=== PATIENT | female | born 1965 | race Caucasian/White ===

== ENCOUNTER 2018-05-09 15:17 | Inpatient (IN) | payer MEDICAID, OTHER, SELFPAY ==
[2018-05-09] MEDS: NS 1,000 ML IV ×2 (17:35→21:47)
[2018-05-09] MEDS: PIPERACILLIN/TAZOBACTAM SOD 3.375 GM in D5W MINI-BAG PLUS 50 ML IV (17:36)
[2018-05-09 17:37] LABS: BASO # 0.1 10^3/uL (0.0-0.2); BASO % 0.3 % (0.0-1.0); EOS % 0.1 % (0.0-3.0); HEMATOCRIT 35.1 % (36.0-47.0); HEMOGLOBIN 12.2 g/dl (12.0-15.5); IMMATURE GRANULOCYTE % 0.7 % (0-3.0); LYMPH # 1.4 10^3/uL (1.5-4.5); LYMPH % 8.1 % (24.0-44.0); MEAN CORPUSCULAR HEMOGLOBIN 34.4 pg (27.0-33.0); MEAN CORPUSCULAR HGB CONC 34.8 g/dl (32.0-36.5); MEAN CORPUSCULAR VOLUME 98.9 fl (80.0-96.0); MONO # 1.5 10^3/uL (0.0-0.8); MONO % 8.6 % (0.0-5.0); NEUTROPHILS # 14.6 10^3/uL (1.8-7.7); NEUTROPHILS % 82.2 % (36.0-66.0); PLATELET COUNT, AUTOMATED 342 10^3/uL (150-450); RED BLOOD COUNT 3.55 10^6/uL (4.00-5.40); RED CELL DISTRIBUTION WIDTH 10.8 % (11.5-14.5); WHITE BLOOD COUNT 17.7 10^3/uL (4.0-10.0)
[2018-05-09] MEDS: MORPHINE 2 MG/ML 1ML SYRINGE (J2270) IV (17:37)
[2018-05-09 17:51] LABS: ALBUMIN 2.4 GM/DL (3.2-5.2); ALBUMIN/GLOBULIN RATIO 0.52 (1.00-1.93); ALKALINE PHOSPHATASE 139 U/L (45-117); ALT/SGPT 23 U/L (12-78); ANION GAP 13 MEQ/L (8-16); AST/SGOT 33 U/L (7-37); BILIRUBIN,DIRECT 0.2 MG/DL (0.0-0.2); BILIRUBIN,TOTAL 0.6 MG/DL (0.2-1.0); BLOOD UREA NITROGEN 6 MG/DL (7-18); CALCIUM LEVEL 8.1 MG/DL (8.5-10.1); CARBON DIOXIDE LEVEL 24 MEQ/L (21-32); CHLORIDE LEVEL 95 MEQ/L (98-107); CREATININE FOR GFR 0.54 MG/DL (0.55-1.30); GLOMERULAR FILTRATION RATE > 60.0 (>51); GLUCOSE, FASTING 95 MG/DL (70-100); LIPASE 131 U/L (73-393); POTASSIUM SERUM 3.6 MEQ/L (3.5-5.1); SODIUM LEVEL 132 MEQ/L (136-145)
[2018-05-09] MEDS ORDERED: ISOVUE-370 76% 100ML VIAL (Q9967) As Ordered (17:53)
[2018-05-09 17:58] LABS: INR 1.04; PROTHROMBIN TIME 13.7 SECONDS (12.1-14.4)
[2018-05-09 17:59] LABS: PARTIAL THROMBOPLASTIN TIME 24.9 SECONDS (25.4-37.6)
[2018-05-09] MEDS ORDERED: LIDOCAINE W/EPINEPHRINE 1% 20ML VIAL As Ordered (19:34)
[2018-05-09] MEDS ORDERED: LIDOCAINE 1% SDV INJ 30 ML VIAL As Ordered (19:34)
[2018-05-09] MEDS ORDERED: MORPHINE 4 MG/ML 1ML VIAL/SYRINGE (J2270) IV (19:45)
[2018-05-09] MEDS ORDERED: ONDANSETRON 4MG/2ML VIAL (J2405) IV ×2 (19:45→21:15)
[2018-05-09] MEDS ORDERED: ONDANSETRON 4MG/2ML VIAL (J2405) As Ordered (20:21)
[2018-05-09] MEDS ORDERED: MIDAZOLAM INJ 2 MG/2 ML VIAL (J2250) As Ordered (20:21)
[2018-05-09] MEDS ORDERED: dexameTHASONE 4 MG/ML 1ML VIAL (J1100) As Ordered (20:21)
[2018-05-09] MEDS ORDERED: fentaNYL 250 MCG/5 ML INJECTION (J3010) As Ordered (20:21)
[2018-05-09] MEDS ORDERED: PHENYLephrine HCL 500 MCG/5 ML (100MCG/ML) SYRINGE (J2370) As Ordered ×2 (20:21→20:28)
[2018-05-09] MEDS ORDERED: LIDOCAINE 2% INJ 100 MG/5 ML SDV (FOR ANES.) As Ordered (20:21)
[2018-05-09] MEDS ORDERED: PROPOFOL 200 MG/20 ML VIAL As Ordered (20:21)
[2018-05-09] MEDS ORDERED: KETOROLAC 60 MG/2 ML VIAL (J1885) As Ordered (20:34)
[2018-05-09] MEDS: BUPIVACAINE LIPOSOME/PF 1.3% 20 ML VIAL (13.3MG/ML)(EXPAREL) As Ordered (20:35)
[2018-05-09] MEDS ORDERED: LR 1,000 ML IV (21:15)
[2018-05-09] MEDS ORDERED: fentaNYL 100 MCG/2 ML INJECTION (J3010) IV (21:15)
[2018-05-09] MEDS ORDERED: PERCOCET 5MG/325MG TAB PO (21:15)
[2018-05-09] MEDS ORDERED: HYDROMORPHONE HCL 0.5 MG/ 0.5 ML SYRINGE (J1170 PER 1) IV (21:15)
[2018-05-09] MEDS: VANCOMYCIN HCL 1,000 MG, VIAL MATE ADAPTER 1 EACH in D5W 250 ML IV (21:47)
[2018-05-10] MEDS: PIPERACILLIN/TAZOBACTAM SOD 3.375 GM in D5W MINI-BAG PLUS 50 ML IV ×4 (00:10→18:02)
[2018-05-10] MEDS: NS 1,000 ML IV ×2 (06:04→21:08)
[2018-05-10 06:12] LABS: BASO % 0.1 % (0.0-1.0); HEMATOCRIT 30.1 % (36.0-47.0); LYMPH # 0.4 10^3/uL (1.5-4.5); LYMPH % 4.4 % (24.0-44.0); MEAN CORPUSCULAR HEMOGLOBIN 34.2 pg (27.0-33.0); MEAN CORPUSCULAR HGB CONC 33.9 g/dl (32.0-36.5); MONO # 0.1 10^3/uL (0.0-0.8); MONO % 1.5 % (0.0-5.0); NEUTROPHILS # 7.8 10^3/uL (1.8-7.7); PLATELET COUNT, AUTOMATED 305 10^3/uL (150-450); RED BLOOD COUNT 2.98 10^6/uL (4.00-5.40); RED CELL DISTRIBUTION WIDTH 10.9 % (11.5-14.5); WHITE BLOOD COUNT 8.4 10^3/uL (4.0-10.0)
[2018-05-10 06:27] LABS: HEMOGLOBIN 10.2 g/dl (12.0-15.5)
[2018-05-10 06:35] LABS: ALBUMIN 1.9 GM/DL (3.2-5.2); ALBUMIN/GLOBULIN RATIO 0.42 (1.00-1.93); ALKALINE PHOSPHATASE 102 U/L (45-117); ALT/SGPT 18 U/L (12-78); ANION GAP 10 MEQ/L (8-16); AST/SGOT 23 U/L (7-37); BILIRUBIN,TOTAL 0.5 MG/DL (0.2-1.0); BLOOD UREA NITROGEN 7 MG/DL (7-18); CALCIUM LEVEL 7.9 MG/DL (8.5-10.1); CARBON DIOXIDE LEVEL 24 MEQ/L (21-32); CHLORIDE LEVEL 103 MEQ/L (98-107); CREATININE FOR GFR 0.47 MG/DL (0.55-1.30); GLOMERULAR FILTRATION RATE > 60.0 (>51); GLUCOSE, FASTING 137 MG/DL (70-100); POTASSIUM SERUM 3.5 MEQ/L (3.5-5.1); SODIUM LEVEL 137 MEQ/L (136-145); TOTAL PROTEIN 6.4 GM/DL (6.4-8.2)
[2018-05-10 08:32] LABS: CHOLESTEROL LEVEL 115 MG/DL (<200); CHOLESTEROL RISK RATIO 3.285 (<5); HDL CHOLESTEROL 35 MG/DL (>40); LDL CHOLESTEROL 70 MG/DL (<100); NON-HDL-C 80 MG/DL; TRIGLYCERIDES LEVEL 51 MG/DL (<150)
[2018-05-10] MEDS: VANCOMYCIN HCL 1,000 MG, VIAL MATE ADAPTER 1 EACH in D5W 250 ML IV ×2 (08:59→21:08)
[2018-05-10] MEDS: ENOXAPARIN 40 MG/0.4 ML SYRINGE (J1650) SC (08:59)
[2018-05-10 11:35] LABS: ESTIMATED AVERAGE GLUCOSE 105 MG/DL (60-110); HEMOGLOBIN A1c 5.3 %
[2018-05-10] MEDS: CALCIUM ACETATE 667 MG GELCAP PO ×2 (11:41→18:02)
[2018-05-10] MEDS: PERCOCET 5MG/325MG TAB PO ×2 (15:11→20:42)
[2018-05-10] MEDS: ACETAMINOPHEN TAB 650MG DOSE (2X325MG) PO (22:28)
[2018-05-11] MEDS: PIPERACILLIN/TAZOBACTAM SOD 3.375 GM in D5W MINI-BAG PLUS 50 ML IV ×2 (00:12→05:59)
[2018-05-11 06:29] LABS: BASO % 0.2 % (0.0-1.0); HEMOGLOBIN 9.6 g/dl (12.0-15.5); IMMATURE GRANULOCYTE % 0.7 % (0-3.0); LYMPH # 1.6 10^3/uL (1.5-4.5); LYMPH % 14.7 % (24.0-44.0); MEAN CORPUSCULAR HEMOGLOBIN 33.7 pg (27.0-33.0); MEAN CORPUSCULAR HGB CONC 33.1 g/dl (32.0-36.5); MEAN CORPUSCULAR VOLUME 101.8 fl (80.0-96.0); MONO # 0.9 10^3/uL (0.0-0.8); MONO % 8.6 % (0.0-5.0); NEUTROPHILS # 8.3 10^3/uL (1.8-7.7); NEUTROPHILS % 75.8 % (36.0-66.0); PLATELET COUNT, AUTOMATED 365 10^3/uL (150-450); RED BLOOD COUNT 2.85 10^6/uL (4.00-5.40); WHITE BLOOD COUNT 10.9 10^3/uL (4.0-10.0)
[2018-05-11 06:38] LABS: ALBUMIN 1.8 GM/DL (3.2-5.2); ALBUMIN/GLOBULIN RATIO 0.44 (1.00-1.93); ALKALINE PHOSPHATASE 88 U/L (45-117); ALT/SGPT 18 U/L (12-78); ANION GAP 8 MEQ/L (8-16); AST/SGOT 19 U/L (7-37); BILIRUBIN,TOTAL 0.4 MG/DL (0.2-1.0); BLOOD UREA NITROGEN 8 MG/DL (7-18); C REACTIVE PROTEIN QUANTITATIV 6.76 MG/DL (0.00-0.30); CALCIUM LEVEL 7.8 MG/DL (8.5-10.1); CARBON DIOXIDE LEVEL 27 MEQ/L (21-32); CHLORIDE LEVEL 106 MEQ/L (98-107); CREATININE FOR GFR 0.69 MG/DL (0.55-1.30); GLOMERULAR FILTRATION RATE > 60.0 (>51); GLUCOSE, FASTING 89 MG/DL (70-100); POTASSIUM SERUM 3.2 MEQ/L (3.5-5.1); SODIUM LEVEL 141 MEQ/L (136-145); TOTAL PROTEIN 5.9 GM/DL (6.4-8.2)
[2018-05-11] MEDS: PERCOCET 5MG/325MG TAB PO (06:43)
[2018-05-11] MEDS: CALCIUM ACETATE 667 MG GELCAP PO ×2 (08:19→12:30)
[2018-05-11] MEDS: POTASSIUM CHLORIDE 10 MEQ SR TABLET PO (08:20)
[2018-05-11] MEDS: ENOXAPARIN 40 MG/0.4 ML SYRINGE (J1650) SC (08:20)
[2018-05-11] MEDS: LevoFLOXacin IV 750 MG in APPROPRIATE DILUENT 1 EA IV (08:20)
[2018-05-11] MEDS: KETOROLAC 30 MG/ML VIAL (J1885) IV ×3 (08:22→21:21)
[2018-05-11] MEDS: NS 1,000 ML IV (09:19)
[2018-05-11] MEDS ORDERED: PERCOCET 5MG/325MG TAB PO (10:15)
[2018-05-11] MEDS: ALPRAZolam 0.5 MG TAB PO (12:10)
[2018-05-11] MEDS ORDERED: LORazepam 2 MG/ML VIAL (J2060) IV (14:15)
[2018-05-11] MEDS: OXAZEPAM 10 MG CAP PO (18:22)
[2018-05-12] MEDS: OXAZEPAM 10 MG CAP PO ×4 (00:56→20:06)
[2018-05-12] MEDS: ACETAMINOPHEN TAB 650MG DOSE (2X325MG) PO (01:00)
[2018-05-12] MEDS: KETOROLAC 30 MG/ML VIAL (J1885) IV ×2 (06:04→20:05)
[2018-05-12 06:06] LABS: BASO % 0.4 % (0.0-1.0); EOS % 0.3 % (0.0-3.0); HEMATOCRIT 33.4 % (36.0-47.0); HEMOGLOBIN 11.2 g/dl (12.0-15.5); IMMATURE GRANULOCYTE % 0.7 % (0-3.0); LYMPH # 1.7 10^3/uL (1.5-4.5); LYMPH % 22.9 % (24.0-44.0); MEAN CORPUSCULAR HEMOGLOBIN 34.3 pg (27.0-33.0); MEAN CORPUSCULAR HGB CONC 33.5 g/dl (32.0-36.5); MEAN CORPUSCULAR VOLUME 102.1 fl (80.0-96.0); MONO # 0.7 10^3/uL (0.0-0.8); MONO % 9.6 % (0.0-5.0); NEUTROPHILS % 66.1 % (36.0-66.0); PLATELET COUNT, AUTOMATED 439 10^3/uL (150-450); RED BLOOD COUNT 3.27 10^6/uL (4.00-5.40); RED CELL DISTRIBUTION WIDTH 11.3 % (11.5-14.5); WHITE BLOOD COUNT 7.5 10^3/uL (4.0-10.0)
[2018-05-12 06:40] LABS: ALBUMIN 1.9 GM/DL (3.2-5.2); ALBUMIN/GLOBULIN RATIO 0.44 (1.00-1.93); ALKALINE PHOSPHATASE 88 U/L (45-117); ALT/SGPT 18 U/L (12-78); ANION GAP 8 MEQ/L (8-16); AST/SGOT 16 U/L (7-37); BILIRUBIN,TOTAL 0.3 MG/DL (0.2-1.0); BLOOD UREA NITROGEN 8 MG/DL (7-18); CALCIUM LEVEL 8.4 MG/DL (8.5-10.1); CARBON DIOXIDE LEVEL 31 MEQ/L (21-32); CHLORIDE LEVEL 104 MEQ/L (98-107); CREATININE FOR GFR 0.67 MG/DL (0.55-1.30); GLOMERULAR FILTRATION RATE > 60.0 (>51); GLUCOSE, FASTING 85 MG/DL (70-100); POTASSIUM SERUM 3.3 MEQ/L (3.5-5.1); SODIUM LEVEL 143 MEQ/L (136-145); TOTAL PROTEIN 6.2 GM/DL (6.4-8.2)
[2018-05-12] MEDS: POTASSIUM CHLORIDE 10 MEQ SR TABLET PO ×2 (08:09→14:19)
[2018-05-12] MEDS: LevoFLOXacin IV 750 MG in APPROPRIATE DILUENT 1 EA IV (08:09)
[2018-05-12] MEDS: ENOXAPARIN 40 MG/0.4 ML SYRINGE (J1650) SC (08:09)
[2018-05-12] MEDS: THIAMINE 100 MG TAB PO ×2 (09:33→20:06)
[2018-05-12] MEDS: FOLIC ACID 1 MG TAB PO (09:33)
[2018-05-12] MEDS: MULTIVITAMINS/MINERALS THERAP 1 TAB PO (09:33)
[2018-05-12] MEDS ORDERED: ISOVUE-370 76% 100ML VIAL (Q9967) As Ordered (10:05)
[2018-05-12] MEDS: NICOTINE 7 MG/24 HR TRANSDERMAL TD (12:21)
[2018-05-12] MEDS: zolPIDEM TARTRATE 5 MG TAB PO (22:31)
[2018-05-13 06:31] LABS: CALCIUM LEVEL 8.7 MG/DL (8.5-10.1)
[2018-05-13] MEDS: MULTIVITAMINS/MINERALS THERAP 1 TAB PO (08:00)
[2018-05-13] MEDS: LevoFLOXacin IV 750 MG in APPROPRIATE DILUENT 1 EA IV (08:00)
[2018-05-13] MEDS: FOLIC ACID 1 MG TAB PO (08:00)
[2018-05-13] MEDS: THIAMINE 100 MG TAB PO ×2 (08:00→21:02)
[2018-05-13] MEDS: OXAZEPAM 10 MG CAP PO ×2 (08:01→21:02)
[2018-05-13] MEDS: ENOXAPARIN 40 MG/0.4 ML SYRINGE (J1650) SC (08:01)
[2018-05-13] MEDS: NICOTINE 7 MG/24 HR TRANSDERMAL TD (08:02)
[2018-05-13 08:13] LABS: HEMATOCRIT 33.9 % (36.0-47.0); HEMOGLOBIN 11.4 g/dl (12.0-15.5); MEAN CORPUSCULAR HEMOGLOBIN 34.3 pg (27.0-33.0); MEAN CORPUSCULAR HGB CONC 33.6 g/dl (32.0-36.5); MEAN CORPUSCULAR VOLUME 102.1 fl (80.0-96.0); PLATELET COUNT, AUTOMATED 465 10^3/uL (150-450); RED BLOOD COUNT 3.32 10^6/uL (4.00-5.40); RED CELL DISTRIBUTION WIDTH 11.4 % (11.5-14.5); WHITE BLOOD COUNT 7.6 10^3/uL (4.0-10.0)
[2018-05-13] MEDS: KETOROLAC 30 MG/ML VIAL (J1885) IV ×3 (08:15→21:02)
[2018-05-13 08:22] LABS: ANION GAP 8 MEQ/L (8-16); BLOOD UREA NITROGEN 10 MG/DL (7-18); C REACTIVE PROTEIN QUANTITATIV 3.54 MG/DL (0.00-0.30); CARBON DIOXIDE LEVEL 27 MEQ/L (21-32); CHLORIDE LEVEL 106 MEQ/L (98-107); CREATININE FOR GFR 0.76 MG/DL (0.55-1.30); GLOMERULAR FILTRATION RATE > 60.0 (>51); GLUCOSE, FASTING 109 MG/DL (70-100); MAGNESIUM LEVEL 1.2 MG/DL (1.8-2.4); POTASSIUM SERUM 4.4 MEQ/L (3.5-5.1); SODIUM LEVEL 141 MEQ/L (136-145)
[2018-05-13] MEDS: MAG SULF 1GM/100ML (MAG RUN) 1 GM in APPROPRIATE DILUENT 1 EA IV ×3 (12:12→13:44)
[2018-05-13] MEDS: MAGNESIUM CITRATE 300 ML BTL PO (17:29)
[2018-05-13] MEDS: GOLYTELY SOLN 4000 ML BTL PO (18:41)
[2018-05-14] MEDS: GOLYTELY SOLN 4000 ML BTL PO (05:00)
[2018-05-14 05:55] LABS: HEMATOCRIT 35.5 % (36.0-47.0); HEMOGLOBIN 11.5 g/dl (12.0-15.5); MEAN CORPUSCULAR HEMOGLOBIN 33.4 pg (27.0-33.0); MEAN CORPUSCULAR HGB CONC 32.4 g/dl (32.0-36.5); MEAN CORPUSCULAR VOLUME 103.2 fl (80.0-96.0); PLATELET COUNT, AUTOMATED 492 10^3/uL (150-450); RED BLOOD COUNT 3.44 10^6/uL (4.00-5.40); RED CELL DISTRIBUTION WIDTH 11.5 % (11.5-14.5)
[2018-05-14 06:09] LABS: ANION GAP 3 MEQ/L (8-16); BLOOD UREA NITROGEN 7 MG/DL (7-18); C REACTIVE PROTEIN QUANTITATIV 1.93 MG/DL (0.00-0.30); CALCIUM LEVEL 8.6 MG/DL (8.5-10.1); CARBON DIOXIDE LEVEL 32 MEQ/L (21-32); CHLORIDE LEVEL 109 MEQ/L (98-107); CREATININE FOR GFR 0.82 MG/DL (0.55-1.30); GLOMERULAR FILTRATION RATE > 60.0 (>51); GLUCOSE, FASTING 108 MG/DL (70-100); POTASSIUM SERUM 3.7 MEQ/L (3.5-5.1); SODIUM LEVEL 144 MEQ/L (136-145)
[2018-05-14] MEDS: ENOXAPARIN 40 MG/0.4 ML SYRINGE (J1650) SC (08:03)
[2018-05-14] MEDS: NICOTINE 7 MG/24 HR TRANSDERMAL TD (08:03)
[2018-05-14 08:10] LABS: MAGNESIUM LEVEL 1.9 MG/DL (1.8-2.4)
[2018-05-14] MEDS: FOLIC ACID 1 MG TAB PO (08:16)
[2018-05-14] MEDS: THIAMINE 100 MG TAB PO ×2 (08:16→20:15)
[2018-05-14] MEDS: MULTIVITAMINS/MINERALS THERAP 1 TAB PO (08:16)
[2018-05-14] MEDS: OXAZEPAM 10 MG CAP PO (08:16)
[2018-05-14] MEDS: LevoFLOXacin IV 750 MG in APPROPRIATE DILUENT 1 EA IV (08:17)
[2018-05-14] MEDS ORDERED: MULTIVITAMIN PO (09:00)
[2018-05-14] MEDS ORDERED: [UNRECOGNIZED DRUG - OTHER] PO (09:00)
[2018-05-14] MEDS: KETOROLAC 30 MG/ML VIAL (J1885) IV ×2 (12:44→20:16)
[2018-05-14] MEDS ORDERED: PROPOFOL 200 MG/20 ML VIAL As Ordered (17:32)
[2018-05-14] MEDS ORDERED: LIDOCAINE 2% INJ 100 MG/5 ML SDV (FOR ANES.) As Ordered (17:32)
[2018-05-14] MEDS ORDERED: ONDANSETRON 4MG/2ML VIAL (J2405) IV (18:15)
[2018-05-14] MEDS: LR 1,000 ML IV (18:15)
[2018-05-14] MEDS ORDERED: fentaNYL 100 MCG/2 ML INJECTION (J3010) As Ordered (18:16)
[2018-05-14] MEDS: fentaNYL 100 MCG/2 ML INJECTION (J3010) IV ×4 (18:18→18:35)
[2018-05-15 06:14] LABS: HEMATOCRIT 34.2 % (36.0-47.0); HEMOGLOBIN 11.2 g/dl (12.0-15.5); MEAN CORPUSCULAR HEMOGLOBIN 34.3 pg (27.0-33.0); MEAN CORPUSCULAR HGB CONC 32.7 g/dl (32.0-36.5); MEAN CORPUSCULAR VOLUME 104.6 fl (80.0-96.0); PLATELET COUNT, AUTOMATED 459 10^3/uL (150-450); RED BLOOD COUNT 3.27 10^6/uL (4.00-5.40); RED CELL DISTRIBUTION WIDTH 11.8 % (11.5-14.5); WHITE BLOOD COUNT 7.5 10^3/uL (4.0-10.0)
[2018-05-15] MEDS: CEPACOL LOZENGE PO (06:15)
[2018-05-15 06:34] LABS: C REACTIVE PROTEIN QUANTITATIV 1.72 MG/DL (0.00-0.30)
[2018-05-15 06:39] LABS: ANION GAP 5 MEQ/L (8-16); BLOOD UREA NITROGEN 9 MG/DL (7-18); CALCIUM LEVEL 8.8 MG/DL (8.5-10.1); CARBON DIOXIDE LEVEL 29 MEQ/L (21-32); CHLORIDE LEVEL 107 MEQ/L (98-107); CREATININE FOR GFR 0.86 MG/DL (0.55-1.30); GLOMERULAR FILTRATION RATE > 60.0 (>51); GLUCOSE, FASTING 90 MG/DL (70-100); POTASSIUM SERUM 4.4 MEQ/L (3.5-5.1); SODIUM LEVEL 141 MEQ/L (136-145)
[2018-05-15] MEDS: FOLIC ACID 1 MG TAB PO (08:24)
[2018-05-15] MEDS: ENOXAPARIN 40 MG/0.4 ML SYRINGE (J1650) SC (08:24)
[2018-05-15] MEDS: MULTIVITAMIN PO (08:25)
[2018-05-15] MEDS: [UNRECOGNIZED DRUG - OTHER] PO (08:25)
[2018-05-15] MEDS: NICOTINE 7 MG/24 HR TRANSDERMAL TD (08:34)
[2018-05-15 08:38] LABS: CARCINOEMBRYONIC ANTIGEN 2.3 NG/ML (<2.5)
[2018-05-15] MEDS: LevoFLOXacin IV 750 MG in APPROPRIATE DILUENT 1 EA IV (08:49)
[2018-05-15] MEDS: ACETAMINOPHEN TAB 650MG DOSE (2X325MG) PO (15:13)
[2018-05-16] MEDS ORDERED: LevoFLOXacin 750 MG TABLET PO (06:00)
== END 2018-05-15 17:07 | disposition home or self-care (01) | DRG 710 ==
LOC: M ED 15:17 → M ED INP 19:17 → M MSPAV 21:32
PROC: 0YB60ZZ Excision of Left Inguinal Region, Open Approach (ICD-10-PCS; principal; 2018-05-09 20:00)
PROC: 07BJ0ZX Excision of Left Inguinal Lymphatic, Open Approach, Diagnostic (ICD-10-PCS; 2018-05-09 20:00)
PROC: 0UBG8ZX Excision of Vagina, Via Natural or Artificial Opening Endoscopic, Diagnostic (ICD-10-PCS; 2018-05-09 20:02)
DX: A41.9 Sepsis, unspecified organism (principal); C77.4 Secondary and unspecified malignant neoplasm of inguinal and lower limb lymph nodes; C80.1 Malignant (primary) neoplasm, unspecified; L02.214 Cutaneous abscess of groin; E83.51 Hypocalcemia; L03.314 Cellulitis of groin; F17.210 Nicotine dependence, cigarettes, uncomplicated; E87.6 Hypokalemia; F10.10 Alcohol abuse, uncomplicated; K64.9 Unspecified hemorrhoids; D39.8 Neoplasm of uncertain behavior of other specified female genital organs; Z91.19 Patient's noncompliance with other medical treatment and regimen; B95.4 Other streptococcus as the cause of diseases classified elsewhere

== ENCOUNTER → 2018-06-01 | Outpatient (CLI) | payer MEDICAID, OTHER | LOC: M LAB 10:15 | DX: C49.5 Malignant neoplasm of connective and soft tissue of pelvis (principal); C79.9 Secondary malignant neoplasm of unspecified site | CPT/HCPCS: 36415 ==

== ENCOUNTER → 2018-07-03 | Outpatient (CLI) | payer OTHER, MEDICAID | LOC: M ONCR 13:21 | DX: C51.9 Malignant neoplasm of vulva, unspecified (principal); Z90.79 Acquired absence of other genital organ(s) ==

== ENCOUNTER 2018-07-10 10:45 | Outpatient (RCR) | payer OTHER ==
--- NOTE | 2018-07-11 09:28 | RADONC ---
RADIATION ONCOLOGY SIMULATION NOTE DATE: 07/10/2018 Ms. Barrios was taken to the CT scan for CT simulation of her pelvic field. CT was accomplished without difficulty or discomfort. Radiation treatment planning is underway and radiation treatments will begin subsequently. An immobilization device was created and will be used throughout the course of treatment. It was created without difficulty or discomfort. I was physically present throughout the course of CT simulation.
--- NOTE | 2018-07-13 13:10 | RADONC ---
RADIATION ONCOLOGY PROGRESS NOTE DATE: 07/12/2018 CHART NUMBER: [id number] PROGRESS NOTE: I called Ms. Barrios to discuss our recommendations from the multidisciplinary tumor conference on Monday. I explained to her that after a lengthy discussion as well as review of her PET scan and photographs of her wounds it was the consensus of the tumor board that we should withhold radiation for a few more weeks to allow further healing. Indeed the pathologist confirmed the report that all the margins of resection were negative. In the inguinal node region however it was resected in pieces, and therefore, no margin can be determined. However, there was extranodal extension. The PET scan did show some slight hypermetabolic activity in the contralateral inguinal node, which may be related to her surgery and wounds. Once again, I explained to the patient that we are rescheduling simulation and redoing treatment planning in mid July to allow 3 or 4 weeks for further healing. I have asked her to keep her other appointments as scheduled with her other physicians. To be clear, the patient still is a candidate for postoperative radiation therapy especially in light of the unknown margins in the inguinal region. No evidence of distant metastatic disease was seen on her PET scan.
== END 2018-07-23 ==
LOC: M ONCR 10:45
PROVIDERS: ATTEND Radiology Radiation Oncology
DX: C51.9 Malignant neoplasm of vulva, unspecified (principal)

== ENCOUNTER → 2018-07-10 | Outpatient (CLI) | payer OTHER ==
[~2018-07-10] MED LIST: FOLI1TAB11 PO; LEVA750T7 PO; OXYC1TAB23 PO; VITMTA PO
--- NOTE | 2018-07-10 17:45 | REP ---
PET/CT: History: Staging vulvar carcinoma. Comparisons: Comparison CT study of the abdomen May 09, 2018. TECHNIQUE: 1 hour 25 minutes following the intravenous injection of a 7.8 mCi dose of F-18 FDG, three-dimensional PET scintigraphy is acquired from the skull base to the proximal thighs. Triplanar noncontrast CT scanning is acquired through the same anatomic range for attenuation correction, and image registration with scan parameters optimized to minimize radiation exposure to the patient. PET scintigraphy and CT datasets were fused and displayed on a workstation with multiplanar and projection display capability. PET/CT Findings: There is hypermetabolic uptake is superficial distribution in the subcutaneous region of the left groin soft tissues inferiorly. Maximum standard uptake value here is 6.6. Accompanying CT shows an area of residual induration. In the perineum, in the region of the left vaginal wall, there is a linear pattern of hypermetabolic uptake as well with maximum standard uptake value 8.8. There is mildly hypermetabolic lymph node in the right inguinal soft tissue with maximum standard uptake value 2.2. No intrapelvic hypermetabolic adenopathy is seen. No retroperitoneal or hepatic hypermetabolic uptake is observed. No pulmonary parenchymal or other intrathoracic hypermetabolic uptake is seen. Head and neck soft tissues are unremarkable. Impression: There is hypermetabolic uptake in the left inferior inguinal subcutaneous tissues and in the perineum in a linear distribution consistent with left vaginal wall uptake. There is a mildly hypermetabolic normal-sized right inguinal lymph node. No other abnormal hypermetabolic uptake is seen. Electronically Signed by Jesus Hernandez MD 07/10/2018 06:38 P
== END ==
LOC: M PLARAD 11:48
PROVIDERS: ATTEND Radiology Radiation Oncology
DX: C51.9 Malignant neoplasm of vulva, unspecified (principal)
CPT/HCPCS: 78815; A9552

== ENCOUNTER 2018-08-15 10:32 | Outpatient (RCR) | payer OTHER ==
--- NOTE | 2018-08-15 15:50 | RADONC ---
RADIATION ONCOLOGY PROGRESS/SIMULATION NOTE DATE: 08/15/2018 CHART NUMBER: [id number] DIAGNOSIS: Vulvar cancer. STAGE: CIARA, T1N3MX. ECOG PERFORMANCE STATUS: 1. PROGRESS NOTE: Ms. Barrios came in today for scheduled simulation and I saw the patient initially in the exam room for further questions and discussions. Overall, I spent more than an hour with this patient discussing every aspect of vulvar cancer, the philosophy of radiation treatments, the techniques and radiation treatments, the local control and failure rates with and without radiation as well as with and without chemotherapy, the possibility of seeking a third opinion at a larger institution such as [facility] in [place] or in [place], [place], or [place]. I discussed specifically local control rates from various studies with regards to the patients with locally advanced cancers including positive lymph nodes. We discussed in detail her pathological findings and the risk factors therein for local recurrence. In addition, I printed out a copy of the NCCN guidelines including all the texts and information therein for her to review at her leisure. I have set her up to be discussed at multidisciplinary tumor conference and I have spoken in depth with our pathologist, Dr. Napoleon De Jesus who reviewed the path specimens for me. In addition, I have requested that all pathology slide specimens be forwarded from [facility] to be compared and analyzed prior to this patient making a final decision on treatment. I also discussed with this patient her difficulties with transportation and where she lives. We discussed setting up some type of transportation for treatment although the patient says she would not be able to get her. The patient also expressed the inability to get [place] but was wearing a casino T-shirt from a casino outside [place] where she was just a few days ago. I did question how she got [place] for gambling, but could not make it to [place] for a consultation. After a very lengthy discussion the patient has agreed to come back to us next for further discussion and possible simulation. I have asked her to review the web sites and information I have given her and to discuss this with her family. She has been given the local control rates for various stages of vulvar cancer with and without radiation as well as with and without chemotherapy. On a more optimistic note I have undertaken a physical examination at this time. Her open wounds are now just about healed. In light of the fact that we were not able to start radiation because of her healing issue, we are not delayed in initiation of treatment. Indeed this additional week I think would be of benefit to this patient for final closure of her wound. At this time it is almost completely healed. If she does undergo simulation next week we could begin following that and be relatively confident that we should be able to complete this without any wound issues. I am also setting this patient up to be seen by medical oncology. Apparently she has been lost to their followup. We look forward to their expert opinion as to whether or not she would benefit from systemic therapy concomitantly. cc: Betty Suggs MD, FACP
== END 2018-08-23 ==
LOC: M ONCR 10:32
PROVIDERS: ATTEND Radiology Radiation Oncology
DX: C51.9 Malignant neoplasm of vulva, unspecified (principal)

== ENCOUNTER → 2018-09-20 | Outpatient (RCR) | payer OTHER ==
--- NOTE | 2018-08-28 10:01 | RADONC ---
RADIATION ONCOLOGY SIMULATION NOTE DATE: 08/27/2018 CHART NUMBER: [id number] DIAGNOSIS: Vulvar cancer. STAGE: IV A, T1N3MX. ECOG PERFORMANCE STATUS: 0 SIMULATION NOTE: Ms. Barrios was taken to the CT scan for CT simulation of her vulvar/inguinal freeman. CT was accomplished without difficulty or discomfort. Radiation treatment planning is underway and radiation treatments will begin subsequently. An immobilization device was created without difficulty or discomfort. It will be used throughout the course of treatment. I was physically present throughout the course of CT simulation.
--- NOTE | 2018-08-28 10:23 | RADONC ---
RADIATION ONCOLOGY SIMULATION NOTE DATE OF SERVICE: 08/27/2018 CHART #: [id number] Ms. Barrios was taken to the CT scan for CT simulation of her vulvar/inguinal field. CT was accomplished without difficulty or discomfort. Radiation treatment planning is underway and radiation treatments will begin subsequently. An immobilization device was created and will be used throughout the course of treatment. It was created without difficulty or discomfort. I was physically present throughout the course of CT simulation. I had ordered a reconsultation by medical oncology. Apparently, it was not set up. I have now called the nurse navigator to set up an appointment for her to see medical oncology for discussion of concomitant chemotherapy for radiation sensitization. I have asked our navigator to expedite this treatment to see Dr. Isela Pulido. She was a patient of Dr. Betty Suggs, but Dr. Suggs has now left [facility].
--- NOTE | 2018-09-18 09:57 | RADONC ---
RADIATION ONCOLOGY PROGRESS NOTE DATE: 09/17/2018 CHART NUMBER: Ms. Barrios is thus far at a dose of 1080 cGy to her pelvis and was last treated on Monday09/14/2018. She did not come in today. As of Monday she had been tolerating her treatments quite well with no difficulties related to her radiation therapy. Her review of systems remained unchanged. PHYSICAL EXAMINATION: The patient's skin as of Monday was in good condition with no evidence of moist or dry desquamation. The remainder of physical exam remained unchanged. Ms. Barrios has refused chemotherapy and hopefully will be compliant with radiation. Radiation is expected to resume tomorrow.
== END ==
LOC: M ONCR 08-27 10:44
PROVIDERS: ATTEND Radiology Radiation Oncology
DX: C51.9 Malignant neoplasm of vulva, unspecified (principal)

== ENCOUNTER 2018-10-19 13:50 | Outpatient (RCR) | payer OTHER ==
--- NOTE | 2018-09-25 10:50 | RADONC ---
RADIATION ONCOLOGY PROGRESS NOTE DATE: 09/24/2018 CHART NUMBER: [id number] PROGRESS NOTE: Ms. Barrios is presently at a dose of 1980 cGy to her vulva and is complaining of perineal and vulvar discomfort. REVIEW OF SYSTEMS: The patient's review of systems is positive for discomfort in the radiated field as well as some bowel movement changes, but is otherwise generally noncontributory. Denies nausea, vomiting, fevers, chills, night sweats, diplopia, headaches, anxiety or depression, anorexia, weight loss, visual disturbances, chest pain, urinary or bowel difficulties, bone pain, or neurological problems. PHYSICAL EXAMINATION: The patient's skin is in good condition with no evidence of moist or dry desquamation. The remainder of her physical exam remains unchanged. Ms. Barrios is tolerating her treatments fairly well and radiation will continue as scheduled.
--- NOTE | 2018-10-03 06:59 | RADONC ---
RADIATION ONCOLOGY PROGRESS NOTE DATE: 10/01/2018 CHART NUMBER: [id number] Ms. Barrios is thus far at a dose of 1980 cGy to her vaginal area and was last treated on September 24, 2018. She has been on rest for the last week. The patient came in today reporting she still has a lot of discomfort and irritation. The patient's review of systems is positive for discomfort and irritation, but is otherwise noncontributory. She denies nausea, vomiting, fevers, chills, night sweats, diplopia, headaches, anxiety or depression, anorexia, weight loss, visual disturbances, chest pain, urinary or bowel difficulties, bone pain, or neurological problems. PHYSICAL EXAMINATION: The patient's skin in the pelvic region is brisk red with some areas of desquamation. The remainder of physical exam remains unchanged. ASSESSMENT: The patient will remain on rest at least until Monday. I have given her prescription for Silvadene to be applied topically in the meantime. We will continue to follow her closely.
--- NOTE | 2018-10-09 08:53 | RADONC ---
RADIATION ONCOLOGY PROGRESS NOTE DATE: 10/08/2018 CHART NUMBER: [id number] Ms. Barrios is thus far at a dose of 1980 cGy to her vagina and vulva and was last treated on 09/24/2017. She initially had been scheduled to come in last Monday and cancelled Monday, and Monday. She was scheduled to come in today for treatment and called saying she slept through her scheduled transportation pickup. She says she will come in tomorrow for treatment. She has been made aware of the need for some consistency in treatment. Thus far, she has had 11 fractions of radiation since September 06. We look forward to resuming radiation tomorrow if she can.
--- NOTE | 2018-10-16 13:25 | RADONC ---
RADIATION ONCOLOGY PROGRESS NOTE DATE: 10/15/2018 CHART NUMBER: [id number] Ms. Barrios is thus far at a dose of 1980 cGy to her pelvis and was last treated on 09/24/2018. The patient had not shown up now for 3 weeks. She did come in today and was seen by me again asking the same questions. She asked whether or not she needs the treatment, why she needs to see a R&D ENGINEER doctor, saying she can't decide on if she wants treatment or not or if she wants to see a R&D ENGINEER doctor, not understanding anything, etc., etc. I have made clear in no uncertain terms that I could no longer keep answering the same question over and over and over again for an hour a day. I have made clear to her that I have recommended the treatment and that it is now significantly compromised. I made clear that she either has to make a commitment to come to treatments on a daily basis or stop treatments because treating periodically and then taking large gaps is not doing her any good and is actually burning a future bridge should she need radiation. I made clear to her that she needs continuous followup with her R&D ENGINEER oncologist. She did not seem to understand the need for follow up with any R&D ENGINEER doctor. I explained to her once again that she has R&D ENGINEER cancer and she will need to be followed continuously for most of her life. In addition, I explained to her that I will most likely be retiring within the next few months and that I need to know she is in good hands being followed by her R&D ENGINEER oncologist. She did not seem to grasp any of these concepts, so I contacted our nurse navigator Kera Mason and had Kera Mason meet with her for an additional 1/2 hour answering the same questions over again. Apparently, at the end of that conversation, Kera Mason said that she would set up transportation for Ms. Barrios to be seen by her R&D ENGINEER oncologist in [place] routinely. Ms. Barrios then said she would be willing to go through treatment today. Ms. Mason explained to her that if she continues to miss treatments that we will discontinue her from our treatment schedule and that she needs to make an actual commitment to go through this course of therapy. We have now spent an extremely significant amount of time reiterating the same questions to this patient on a daily basis. On multiple occasions we spent over an hour and a half circularly discussing the same issues over and over and over again. At this point, I expect a commitment from this patient to continue radiation because otherwise we are doing her no good. We will continue to follow her closely and hopefully she will show up for radiation this week. NICOLAS
[~2018-10-19 13:50] MED LIST changes: +SILV40CR EXT
== END 2018-10-21 ==
LOC: M ONCR 13:50
PROVIDERS: ATTEND Radiology Radiation Oncology
DX: C51.9 Malignant neoplasm of vulva, unspecified (principal)

== ENCOUNTER 2018-11-13 13:50 | Outpatient (RCR) | payer OTHER ==
--- NOTE | 2018-10-23 14:43 | RADONC ---
RADIATION ONCOLOGY PROGRESS NOTE DATE: 10/22/2018 CHART NUMBER: [id number] Ms. Barrios is presently at a dose of 3060 cGy to her vulva and is tolerating treatments quite well at this point with no significant complaints related to her radiation therapy other than discomfort of the skin. The patient's review of systems is positive for skin discomfort but is otherwise noncontributory. Denies nausea, vomiting, fevers, chills, night sweats, diplopia, headaches, anxiety or depression, anorexia, weight loss, visual disturbances, chest pain, urinary or bowel difficulties, bone pain, or neurological problems. PHYSICAL EXAMINATION The patient's skin shows some erythema and tanning present but overall is in good condition with no evidence of moist or dry desquamation. The remainder of her physical exam remains unchanged. Ms. Barrios is tolerating treatments quite well, and radiation will continue as scheduled.
--- NOTE | 2018-10-29 14:38 | RADONC ---
RADIATION ONCOLOGY PROGRESS NOTE: DATE: 10/29/2018 CHART NUMBER: [id number] Ms. Barrios is presently at a dose of 3960 cGy to her pelvis and is tolerating treatments fairly well at this point with no significant difficulties related to her radiation therapy. She is continuing to use Silvadene. REVIEW OF SYSTEMS: Patient's review of systems is positive for some skin discomfort but is otherwise noncontributory. She denies nausea, vomiting, fevers, chills, night sweats, diplopia, headaches, anxiety or depression, anorexia, weight loss, visual disturbances, chest pain, urinary or bowel difficulties, bone pain, or neurological problems. PHYSICAL EXAMINATION: The patient's skin shows erythema and tanning present but overall is in generally good condition with no evidence of moist desquamation. The remainder of her physical exam remains unchanged. The patient is tolerating treatment quite well and radiation will continue as scheduled.
--- NOTE | 2018-11-05 16:13 | RADONC ---
RADIATION ONCOLOGY PROGRESS NOTE: DATE: 11/05/2018 CHART NUMBER: [id number] Mrs. 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 Her current dose is 4860 cGy of a proposed 5940 cGy and treatments are going relatively well. REVIEW OF SYSTEMS: She does continue to complain of skin irritation and pain when she defecates as well as diarrhea. She denies any nausea, vomiting, fevers, chills, night sweats, diplopia, headache, anxiety, depression, anorexia, significant weight loss or visual disturbances. Her remained complain clearly is that of diarrhea and pain when she defecates. PHYSICAL EXAMINATION: The skin shows erythema and tanning with no evidence of moist desquamation. The remainder of the physical examination remains unchanged. IMPRESSION: Tolerating therapy reasonably well. PLAN: Treatments to continue and I have asked her to get some Imodium to take for her chronic diarrhea. MTDD
--- NOTE | 2018-11-15 08:28 | RADONC ---
RADIATION ONCOLOGY TREATMENT SUMMARY DATE: 11/13/2018 CHART #: [id number] DIAGNOSIS: Vulvar cancer. STAGE: IV A, T1N3MX. ECOG PERFORMANCE STATUS: 1. TREATMENT SUMMARY: Ms. 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 We treated the patient to her vulva and noninvolved lymph nodes for a dose of 4500 cGy delivered in 25 fractions of 180 cGy each over 56 elapsed days from 09/06/2018 through 11/01/2018. The patient's vulvar region and lymph node region was treated on a linear accelerator utilizing a 6 MV photon beam via IMRT/IGRT. Following completion of 4500 cGy to the postoperative vulva and negative lymph nodes, an additional dose was delivered to the left inguinal region, bringing it to a total of 5940 cGy delivered in 33 fractions over 68 elapsed days from 09/06/2018 through 11/13/2018. Ms. Barrios had a period of significant noncompliance throughout her radiation which extended the overall treatment time. After strong encouragement to avoid any further days off, she did finally start to show up on time on a daily basis. I have scheduled the patient to see me again in 1 month for further followup. She will also continue to be followed by her other physicians as well. cc: MD Triston Carrizales MD Sara McGee, MD Hailey L. Peterson, DO, PGY-2
== END 2018-11-20 ==
LOC: M ONCR 13:50
PROVIDERS: ATTEND Radiology Radiation Oncology
DX: C51.9 Malignant neoplasm of vulva, unspecified (principal)

== ENCOUNTER 2020-05-30 20:14 | Inpatient (IN) | payer OTHER ==
[~2020-05-30] VITALS: Ht 157.5 cm; Wt 52.7 kg
[2020-05-30] MEDS ORDERED: AUGMENTIN 500 MG TAB PO SCH (21:00)
[2020-05-30 21:12] LABS: BASO # 0.1 10^3/uL (0.0-0.2); BASO % 0.5 % (0.0-1.0); EOS % 0.3 % (0.0-3.0); HEMATOCRIT 37.9 % (36.0-47.0); HEMOGLOBIN 12.5 g/dl (12.0-15.5); LYMPH # 1.3 10^3/uL (1.5-5.0); LYMPH % 8.4 % (24.0-44.0); MEAN CORPUSCULAR HEMOGLOBIN 34.8 pg (27.0-33.0); MEAN CORPUSCULAR VOLUME 105.6 fl (80.0-96.0); MONO # 0.7 10^3/uL (0.0-0.8); MONO % 4.8 % (0.0-5.0); NEUTROPHILS # 13.3 10^3/uL (1.5-8.5); NEUTROPHILS % 85.4 % (36.0-66.0); PLATELET COUNT, AUTOMATED 116 10^3/uL (150-450); RED BLOOD COUNT 3.59 10^6/uL (4.00-5.40); WHITE BLOOD COUNT 15.5 10^3/uL (4.0-10.0)
[2020-05-30 21:29] LABS: PARTIAL THROMBOPLASTIN TIME 24.8 SECONDS (24.2-38.5); PROTHROMBIN TIME 13.4 SECONDS (12.5-14.3)
[2020-05-30] MEDS ORDERED: LORazepam 2 MG/ML VIAL IV STA (22:05)
[2020-05-30 22:36] LABS: BLOOD UREA NITROGEN 13 MG/DL (7-18); CARBON DIOXIDE LEVEL 20 MEQ/L (21-32); CHLORIDE LEVEL 107 MEQ/L (98-107); CREATININE FOR GFR 0.93 MG/DL (0.55-1.30); GLOMERULAR FILTRATION RATE > 60.0 (>51); GLUCOSE, FASTING 125 MG/DL (70-100); POTASSIUM SERUM 4.1 MEQ/L (3.5-5.1); SODIUM LEVEL 138 MEQ/L (136-145)
[2020-05-30 22:37] LABS: ALBUMIN 3.3 GM/DL (3.2-5.2); ALT/SGPT 33 U/L (12-78); BILIRUBIN,TOTAL 0.4 MG/DL (0.2-1.0); C REACTIVE PROTEIN QUANTITATIV 0.48 MG/DL (0.00-0.30); CK-MB VALUE MASS 1.4 NG/ML (<3.6); CPK CREATINE PHOSPHOKINASE 104 U/L (26-192); ETHYL ALCOHOL (ETHANOL) 0.054 % (0.000-0.010); MB/CK RELATIVE INDEX 1.35 (< OR =4); TROPONIN I < 0.02 NG/ML (< 0.10)
[2020-05-30] MEDS ORDERED: LORazepam 2 MG/ML VIAL As Ordered ONE (23:03)
[2020-05-30 23:12] LABS: INFLUENZA A AMPLIFICATION NEGATIVE (NEGATIVE); INFLUENZA B AMPLIFICATION NEGATIVE (NEGATIVE)
[2020-05-30] MEDS ORDERED: ACETAMINOPHEN TAB 650MG DOSE (2X325MG) PO PRN (23:15)
[2020-05-31] VITALS (9 sets, daily range): BP systolic 129–160; BP diastolic 70–99
--- NOTE | 2020-05-31 00:01 | REPVR ---
PROCEDURE INFORMATION: Exam: XR Chest, 1 View Exam date and time: 05/30/2020 11:28 PM Age: 54 years old Clinical indication: Other: Sepsi/shock; Additional info: Sepsis/shock TECHNIQUE: Imaging protocol: XR of the chest Views: 1 view. COMPARISON: CT Chest with contrast 05/12/2018 10:05 AM FINDINGS: Lungs: Unremarkable. No consolidation. Pleural space: Unremarkable. No pleural effusion. No pneumothorax. Heart/Mediastinum: Unremarkable. No cardiomegaly. Bones/joints: Unremarkable. IMPRESSION: No acute findings. Electronically signed by: Radha La On 05/31/2020 00:00:48 AM
--- NOTE | 2020-05-31 00:56 | HPEPDOC ---
[facility] Medical History & Physical Date of Admission May 30, 2020 Date of Service: May 30, 2020 Primary Care Physician: Kofi Goldsmith DO Attending Physician: CT CRUZ MD History and Physical CHIEF COMPLAINT: Nosebleed HISTORY OF PRESENT ILLNESS: Patient is a 54-year-old female who reportedly emergency department with a nosebleed. Patient states that her nose is been bl eeding off and on for the past day. Patient says that it just started bleeding spontaneously and there was no trauma to the area. Patient said she would pinch her nose and it would stop bleeding however, it would start bleeding soon after that. In the emergency department, patient vomited sherry blood after swallowing a large amount of blood. Patient then became hypotensive. Rhino Rocket was placed in the left nostril which stopped the bleeding. Since the patient was hypotensive, was believed that she was possibly in hypovolemic shock. Patient was also tachycardic at this time. Patient was started on 2 units of blood and hospitalist was contacted for admission into the hospital for hypovolemic shock. Patient says now she feels very cold and tired but does not complain of any pain anywhere. PAST MEDICAL HISTORY: 1. 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 2. Heavy alcohol use. PAST SURGICAL HISTORY: 1. Incision and drainage of inguinal abscess which turned out to be inguinal lymph node with squamous cell carcinoma SOCIAL HISTORY: Patient lives at home with her daughter, son-in-law, and granddaughter. Patient does smoke cigarettes and says she drinks maybe 1 beer a day. In speaking with the patient's daughter, she says that the patient buys two 30 packs of Labatt ic e (ABV 5.6%) Which is about 8-12 beers a day. Patient denies any illicit drug use. FAMILY HISTORY: Mother had breast cancer and her maternal grandmother had breast cancer ALLERGIES: Please see below. REVIEW OF SYSTEMS: General: Patient denies fevers HEENT: Patient denies headaches Cardiovascular: Patient denies chest pain Respiratory: Patient denies shortness of breath, cough GI: Patient reports vomiting but denies any nausea, abdominal pain at this time : Patient denies increased frequency or pain with urination Extremities: Patient denies swelling or pain in extremities Neurological: Patient denies numbness or tingling in legs Skin: Patient denies any new rashes or lesions. Hematologic: Patient denies any easy bruising. Lymphatic: Patient denies any lumps lumps or bumps in neck, axilla, or groin HOME MEDICATIONS: Please see below. PHYSICAL EXAMINATION: VITAL SIGNS: See below General: Alert and oriented female patient who was laying on the stretcher in the emergency department I walked in the room. Patient did not appear to be in any acute distress. HEENT: Normocephalic, atraumatic, moist mucous membranes, Nasal packing in the left nostril Neck: No lymphadenopathy or thyromegaly Cardiac: Tachycardic rate with a regular rhythm, no murmurs, normal S1, normal S2 Pulm: Clear to auscultation bilaterally. No wheezes, rhonchi, rales Abd: Nondistended, nontender to palpation, normal bowel sounds Ext: No edema bilateral lower extremities Skin: No evidence of rash. LABORATORY DATA: See below. IMAGING: A chest x-ray performed on 05/30/2020 was reported to show no acute fi ndings MICROBIOLOGY: Please see below. ASSESSMENT: Patient is a 54-year-old female who presented to the emergency department with a nosebleed who was found to have hypotension and was diagnosed with hypovolemic shock secondary to nosebleed. . PLAN: 1. Hypovolemic shock. Patient's blood pressure was at its lowest 72/41. Patient has a lactic acidosis and has lost significant amount of blood through her nose throughout the day. Patient will receive 2 units of blood and we will continue to monitor the patient's blood pressure as well as her hemoglobin. 2. Nosebleed. Rhino Rocket is in place. Patient was placed on Augmentin Furlong is a nasal packing is placed. ENT has been contacted by the emergency department and is aware of the patient. Patient can report to the ENT office after discharg e for removal of the Rhino Rocket. 3. Heavy alcohol use. Patient denied heavy alcohol use however, in talking with her daughter she says she drinks anywhere from 8-12 beers a day. Patient has been placed on CIWA and will be given Librium. 4. DVT prophylaxis: Teds and sequentials 5. CODE STATUS: Full code Addendum: I was called by the patient's nurse up on the progressive care unit at the patient began bleeding from the right side of her nose. 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 I called Dr. Talley of ENT to let him know about the change in the patient's status. Dr. Talley said he is going to bring the patient to the operating room as he is unable to perform any procedures bedside. I informed Dr. Talley that Dr. My Choi will be taking over the patient's care at 7:[address] Talley said he is going to call the operating room but it may take some time and to keep the patient's blood pressure within the normal range and to apply direct pressure to the nose in order to control bleeding. I informed the patient of this plan and I placed an order for the patient to be nothing by mouth and place a surgical consult for Dr. Talely Vital Signs Vital Signs Date Time Temp Pulse Resp B/P (MAP) Pulse Ox O2 Delivery O2 Flow Rate FiO2 05/30/20 23:45 128 113/72 (86) 98 05/30/20 20:59 24 Room Air 05/30/20 20:15 95.8 Laboratory Data Labs 24H Laboratory Tests 2 05/30/20 21:02: Immature Granulocyte % (Auto) 0.6, Neutrophils (%) (Auto) 85.4H, Lymphocytes (%) (Auto) 8.4L, Monocytes (%) (Auto) 4.8, Eosinophils (%) (Auto) 0.3, Basophils (%) (Auto) 0.5, Neutrophils # (Auto) 13.3H, Lymphocytes # (Auto) 1.3L, Monocytes # (Auto) 0.7, Eosinophils # (Auto) 0.0, Basophils # (Auto) 0.1, Nucleated Red Blood Cells % (auto) 0.0, Prothrombin Time 13.4, Prothromb Time International Ratio 1.00, Activated Partial Thromboplast Time 24.8L, Anion Gap 11, Glomerular Filtration Rate > 60.0, Calcium Level 9.0, Total Bilirubin 0.4, Aspartate Amino Transf (AST/SGOT) 45H, Alanine Aminotransferase (ALT/SGPT) 33, Alkaline Phosphatase 98, Total Creatine Kinase 104, Creatine Kinase MB 1.4, Creatine Kinase MB Relative Index 1.35, Troponin I < 0.02, C-Reactive Protein, Quantitative 0.48H, Total Protein 7.0, Albumin 3.3, Albumin/Globulin Ratio 0.9L, Thyroid Stimulating Hormone (TSH) 2.960, Ethyl Alcohol Level 0.054H 05/30/20 21:06: POC Glucose (Misc Panel) 131H, POC Sodium (Misc Panel) 137, POC Potassium (Misc Panel) 3.9, POC Chloride (Misc Panel) 105, POC Total CO2 (Misc Panel) 18.0L, POC Blood Urea Nitrogen (Misc Panel 13, POC Ionized Calcium (Misc Panel) 4.5, POC Creatinine (Misc Panel) 0.9, POC Hematocrit (Misc Panel) 39.0 05/30/20 22:22: Lactic Acid Level 3.5*H, Coronavirus (COVID-19)(PCR) NEGATIVE, Influenza Type A (RT-PCR) NEGATIVE, Influenza Type B (RT-PCR) NEGATIVE CBC/BMP Laboratory Tests 05/30/20 21:02 Microbiology Microbiology 05/30/20 Blood Culture, Received Pending 05/30/20 Blood Culture, Received Pending Home Medications No Active Prescriptions or Reported Meds Allergies Coded Allergies: No Known Allergies (Unverified , 05/09/18) A-FIB/CHADSVASC A-FIB History Current/History of A-Fib/PAF?: No GME ATTESTATION GME ATTESTATION My faculty preceptor for this patient encounter was physically present during the encounter and was fully available. All aspects of the patient interview, examination, medical decision making process, and medical care plan development were reviewed and approved by the faculty preceptor. The faculty preceptor is a valenzuela and concurs with the plan as stated in the body of this note and will attest to such by his/her cosignature. SANTIAGO FRANK DO May 31, 2020 00:56
[2020-05-31] MEDS: chlordiazePOXIDE 25 MG CAP PO SCH ×6 (02:31→20:49)
[2020-05-31] MEDS: THIAMINE 100 MG TAB PO SCH ×3 (02:32→20:49)
--- NOTE | 2020-05-31 05:44 | ECGEPIP ---
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
[2020-05-31 05:58] LABS: HEMATOCRIT 43.5 % (36.0-47.0); MEAN CORPUSCULAR HEMOGLOBIN 32.7 pg (27.0-33.0); MEAN CORPUSCULAR HGB CONC 33.3 g/dl (32.0-36.5); MEAN CORPUSCULAR VOLUME 98.2 fl (80.0-96.0); PLATELET COUNT, AUTOMATED 135 10^3/uL (150-450); RED BLOOD COUNT 4.43 10^6/uL (4.00-5.40); WHITE BLOOD COUNT 11.5 10^3/uL (4.0-10.0)
[2020-05-31 06:02] LABS: HEMOGLOBIN 14.5 g/dl (12.0-15.5)
[2020-05-31] MEDS: LORazepam 2 MG TAB PO PRN ×2 (06:50→11:08)
[2020-05-31] MEDS ORDERED: LIDOCAINE 2% 100MG/5ML SDV (FOR ANES.) As Ordered ONE (07:21)
[2020-05-31] MEDS ORDERED: ROCURONIUM BROMIDE 50 MG/5 ML VIAL As Ordered ONE (07:21)
[2020-05-31] MEDS ORDERED: propofoL 200 MG/20 ML VIAL As Ordered ONE (07:21)
[2020-05-31] MEDS ORDERED: MIDAZOLAM INJ 2MG/2ML VIAL (J2250 PER 1MG) As Ordered ONE (07:21)
[2020-05-31] MEDS ORDERED: fentaNYL 100 MCG/2 ML INJECTION (J3010) As Ordered ONE ×3 (07:21→09:42)
[2020-05-31] MEDS ORDERED: LIDOCAINE W/EPINEPHRINE 1% 20ML VIAL As Ordered ONE (07:45)
[2020-05-31] MEDS ORDERED: OXYMETAZOLINE 0.05% NASAL SPRAY (AFRIN) As Ordered ONE (07:45)
[2020-05-31] MEDS ORDERED: METHYLENE BLUE 0.5% (5MG/ML) 10 ML AMP (PROVAYBLUE) As Ordered ONE ×2 (07:45→08:19)
[2020-05-31] MEDS ORDERED: dexameTHASONE 4 MG/ML 1ML VIAL (J1100 PER 1MG) As Ordered ONE (08:14)
[2020-05-31] MEDS ORDERED: PHENYLephrine HCL 500 MCG/5 ML (100MCG/ML) SYRINGE (J2370) As Ordered ONE (08:14)
[2020-05-31] MEDS ORDERED: EPINEPHrine INJ 1 MG/ML 1ML AMP As Ordered ONE ×2 (08:18→08:43)
[2020-05-31] MEDS ORDERED: SUCCINYLCHOLINE 100 MG/5 ML SYRINGE (J0330) As Ordered ONE (08:23)
[2020-05-31] MEDS ORDERED: ONDANSETRON 4MG/2ML VIAL As Ordered ONE (08:29)
[2020-05-31] MEDS ORDERED: SUGAMMADEX SODIUM 500 MG/5 ML VIAL (BRIDION) As Ordered ONE (08:31)
[2020-05-31] MEDS: AMOXICILLIN 500 MG CAP PO SCH ×3 (09:00→20:49)
[2020-05-31] MEDS ORDERED: LR 1,000 ML IV SCH (10:15)
[2020-05-31] MEDS ORDERED: fentaNYL 100 MCG/2 ML INJECTION (J3010) IV PRN (10:15)
[2020-05-31] MEDS ORDERED: PERCOCET 5MG/325MG TAB PO PRN (10:15)
[2020-05-31 10:52] LABS: HEMATOCRIT 37.1 % (36.0-47.0); MEAN CORPUSCULAR HEMOGLOBIN 32.6 pg (27.0-33.0); MEAN CORPUSCULAR HGB CONC 32.9 g/dl (32.0-36.5); MEAN CORPUSCULAR VOLUME 99.2 fl (80.0-96.0); PLATELET COUNT, AUTOMATED 105 10^3/uL (150-450); RED BLOOD COUNT 3.74 10^6/uL (4.00-5.40); WHITE BLOOD COUNT 18.9 10^3/uL (4.0-10.0)
[2020-05-31 11:02] LABS: HEMOGLOBIN 12.2 g/dl (12.0-15.5)
[2020-05-31] MEDS: FOLIC ACID 1 MG TAB PO SCH (11:08)
[2020-05-31] MEDS: MULTIVITAMINS/MINERALS THERAP 1 TAB PO SCH (11:08)
--- NOTE | 2020-05-31 13:42 | IPNPDOC ---
Text Note Date of Service The patient was seen on 05/31/20. NOTE Subjective: Patient seen after OR, very somnolent and groggy still. Could not answer questions. As per nurses earlier in the morning and at night she was agitated and ripping out the leads. Was confused and unfocused. Patient price septoplasty done . There was a septal ulcer. She received quite and lot of fentanyl to calm her down. PHYSICAL EXAMINATION: VITAL SIGNS: See below General: somnolent after OR HEENT: Normocephalic, atraumatic, bandage around the nose. Neck: No lymphadenopathy or thyromegaly Cardiac: Tachycardic rate about 120, with a regular rhythm, no murmurs, normal S1, normal S2 Pulm: Clear to auscultation bilaterally. No wheezes, rhonchi, rales Abd: Nondistended, nontender to palpation, normal bowel sounds Ext: No edema bilateral lower extremities Skin: No evidence of rash. Labs and radiology: reviewed Assessment and Plan: Patient is a 54-year-old female with alcohol abuse, Left vulvar cancer s/p surgery and radiation who came to emergency department with a nosebleed. Her nose is been bleeding off and on for the past day with no history of trauma. In the emergency department, patient vomited sherry blood after swallowing a large amount of blood. Patient then became hypotensive. Rhino Rocket was placed in the left nostril which stopped the bleeding. Since the patient was hypotensive, it was believed that she was possibly in hypovolemic shock. Patient was also tachycardic at this time. Patient was started on 2 units of blood and admitted to the hospital for epistaxis and hypotension. On the floor later at night she started bleeding from the right nose also. As per the nurses it would clot then the patient would again pick at the nose and it would start bleeding. Hypotension probably from dehydration due to alcohol abuse with some blood loss Now resolved. Epistaxis from septal ulcer s/p septoplasty. Amoxycillin Alcohol withdrawal still remains tachycardic though she is sleeping and hypertensive continue Librium when awake. [facility] protocol DVT prophylaxis: Teds and sequentials CODE STATUS: Full code VS,Fishbone, I+O VS, Fishbone, I+O Laboratory Tests 05/30/20 21:02 05/31/20 05:30 05/31/20 10:40 Vital Signs Date Time Temp Pulse Resp B/P (MAP) Pulse Ox O2 Delivery O2 Flow Rate FiO2 05/31/20 11:50 140 160/80 05/31/20 10:15 97.1 18 98 Tent/Cannon 35 I&O- Last 24 Hours up to 6 AM 05/31/20 06:00 Intake Total 800 ml Output Total 0 ml Balance 800 ml TREY IZAGUIRRE MD May 31, 2020 13:42
[2020-05-31 19:39] LABS: HEMATOCRIT 35.5 % (36.0-47.0); HEMOGLOBIN 11.8 g/dl (12.0-15.5); MEAN CORPUSCULAR HEMOGLOBIN 32.5 pg (27.0-33.0); MEAN CORPUSCULAR HGB CONC 33.2 g/dl (32.0-36.5); MEAN CORPUSCULAR VOLUME 97.8 fl (80.0-96.0); PLATELET COUNT, AUTOMATED 108 10^3/uL (150-450); RED BLOOD COUNT 3.63 10^6/uL (4.00-5.40); WHITE BLOOD COUNT 13.5 10^3/uL (4.0-10.0)
[2020-06-01] VITALS: BP 123/75
[2020-06-01 01:01] LABS: HEMATOCRIT 35.1 % (36.0-47.0); HEMOGLOBIN 11.7 g/dl (12.0-15.5); MEAN CORPUSCULAR HEMOGLOBIN 32.6 pg (27.0-33.0); MEAN CORPUSCULAR HGB CONC 33.3 g/dl (32.0-36.5); MEAN CORPUSCULAR VOLUME 97.8 fl (80.0-96.0); PLATELET COUNT, AUTOMATED 114 10^3/uL (150-450); RED BLOOD COUNT 3.59 10^6/uL (4.00-5.40); WHITE BLOOD COUNT 15.1 10^3/uL (4.0-10.0)
[2020-06-01] MEDS: chlordiazePOXIDE 25 MG CAP PO SCH ×5 (02:31→23:39)
[2020-06-01 04:00] VITALS: BP 128/78
[2020-06-01 06:51] LABS: HEMATOCRIT 34.6 % (36.0-47.0); HEMOGLOBIN 11.7 g/dl (12.0-15.5); MEAN CORPUSCULAR HEMOGLOBIN 33.3 pg (27.0-33.0); MEAN CORPUSCULAR HGB CONC 33.8 g/dl (32.0-36.5); MEAN CORPUSCULAR VOLUME 98.6 fl (80.0-96.0); PLATELET COUNT, AUTOMATED 117 10^3/uL (150-450); RED BLOOD COUNT 3.51 10^6/uL (4.00-5.40)
[2020-06-01 07:15] LABS: BLOOD UREA NITROGEN 17 MG/DL (7-18); CREATININE FOR GFR 0.64 MG/DL (0.55-1.30); GLOMERULAR FILTRATION RATE > 60.0 (>51); GLUCOSE, FASTING 110 MG/DL (70-100); SODIUM LEVEL 141 MEQ/L (136-145)
[2020-06-01 07:16] LABS: CALCIUM LEVEL 8.9 MG/DL (8.5-10.1); CARBON DIOXIDE LEVEL 26 MEQ/L (21-32); CHLORIDE LEVEL 106 MEQ/L (98-107); MAGNESIUM LEVEL 1.5 MG/DL (1.8-2.4); POTASSIUM SERUM 3.8 MEQ/L (3.5-5.1)
[2020-06-01 08:00] VITALS: BP_SYST 135; BP_SYST 137; BP_DIAS 65; BP_DIAS 83
[2020-06-01] MEDS ORDERED: NS 1,000 ML IV ONE (08:30)
[2020-06-01] MEDS: FOLIC ACID 1 MG TAB PO SCH (08:51)
[2020-06-01] MEDS: AMOXICILLIN 500 MG CAP PO SCH ×3 (08:51→20:49)
[2020-06-01] MEDS: THIAMINE 100 MG TAB PO SCH ×2 (08:51→20:49)
[2020-06-01] MEDS: MULTIVITAMINS/MINERALS THERAP 1 TAB PO SCH (08:51)
[2020-06-01] MEDS: MAG SULF 1GM/100ML (MAG RUN) 1 GM in IV 1 EA IV SCH ×2 (08:51→10:15)
--- NOTE | 2020-06-01 11:35 | IPNPDOC ---
Text Note Date of Service The patient was seen on 06/01/20. NOTE POD # 1 from Septoplasty, cautery and packing of nose from Epistaxis She seems to have stopped bleeding Normal oozing on dressing anticipated The packing is all absorbable and does not need to be removed She should start Saline Nasal spray irrigations 3 times a day Discharge can be determined by medical status she can follow up with us in the clinic. VS,Fishbone, I+O VS, Fishbone, I+O Laboratory Tests 05/31/20 18:57 06/01/20 00:39 06/01/20 06:02 Vital Signs Date Time Temp Pulse Resp B/P (MAP) Pulse Ox O2 Delivery O2 Flow Rate FiO2 06/01/20 08:00 98.6 93 18 135/83 (100) 96 Room Air 05/31/20 10:15 35 I&O- Last 24 Hours up to 6 AM 06/01/20 06:00 Intake Total 1425 ml Output Total 0 ml Balance 1425 ml LEANNE BOB MD Jun 01, 2020 11:35
--- NOTE | 2020-06-01 11:56 | IPNPDOC ---
Text Note Date of Service The patient was seen on 06/01/20. NOTE Subjective: Patient does not offer any complaints wants to go home. ENT surgeon to see her later. She complains of feeling cold all the time, remains tachycardic. No fever or chills. Calm and cooperative. PHYSICAL EXAMINATION: VITAL SIGNS: See below General: somnolent after OR HEENT: Normocephalic, atraumatic, bandage around the nose. Neck: No lymphadenopathy or thyromegaly Cardiac: Tachycardic rate about 120, with a regular rhythm, no murmurs, normal S1, normal S2 Pulm: Clear to auscultation bilaterally. No wheezes, rhonchi, rales Abd: Nondistended, nontender to palpation, normal bowel sounds Ext: No edema bilateral lower extremities Skin: No evidence of rash. Labs and radiology: reviewed Assessment and Plan: Patient is a 54-year-old female with alcohol abuse, Left vulvar cancer s/p surgery and radiation who came to emergency department with a nosebleed. Her nose is been bleeding off and on for the past day with no history of trauma. In the emergency department, patient vomited sherry blood after swallowing a large amount of blood. Patient then became hypotensive. Rhino Rocket was placed in the left nostril which stopped the bleeding. Since the patient was hypotensive, it was believed that she was possibly in hypovolemic shock. Patient was also tachycardic at this time. Patient was started on 2 units of blood and admitted to the hospital for epistaxis and hypotension. On the floor later at night she started bleeding from the right nose also. As per the nurses it would clot then the patient would again pick at the nose and it would start bleeding. Hypotension probably from dehydration due to alcohol abuse with some blood loss Now resolved. Acute blood loss anemia from massive epistaxis for 2 to 3 days received 2 units of blood. Epistaxis from septal ulcer POD # 1 from Septoplasty, cautery and packing of nose Amoxycillin, nasal spray, packing jorge alberto remain follow up with Gerri in the office Alcohol withdrawal still remains tachycardic though alert, oriented and cooperative. continue Librium CIWA protocol Hypomagnesemia replaced Thrombocytopenia from alcohol abuse. DVT prophylaxis: Teds and sequentials CODE STATUS: Full code VS,Fishbone, I+O VS, Fishbone, I+O Laboratory Tests 05/31/20 18:57 06/01/20 00:39 06/01/20 06:02 Vital Signs Date Time Temp Pulse Resp B/P (MAP) Pulse Ox O2 Delivery O2 Flow Rate FiO2 06/01/20 08:00 98.6 93 18 135/83 (100) 96 Room Air 05/31/20 10:15 35 I&O- Last 24 Hours up to 6 AM 06/01/20 06:00 Intake Total 1425 ml Output Total 0 ml Balance 1425 ml TREY IZAGUIRRE MD Jun 01, 2020 11:56
[2020-06-01 12:00] VITALS: BP 137/69
[2020-06-01 13:34] LABS: HEMATOCRIT 31.8 % (36.0-47.0); HEMOGLOBIN 10.5 g/dl (12.0-15.5); MEAN CORPUSCULAR HEMOGLOBIN 32.9 pg (27.0-33.0); MEAN CORPUSCULAR VOLUME 99.7 fl (80.0-96.0); RED BLOOD COUNT 3.19 10^6/uL (4.00-5.40); WHITE BLOOD COUNT 14.8 10^3/uL (4.0-10.0)
[2020-06-01] MEDS: SODIUM CHLORIDE NASAL 0.65% SPRAY BTL (OCEAN) SCH ×2 (15:04→20:49)
[2020-06-01 16:00] VITALS: BP 133/71
[2020-06-01 19:17] LABS: HEMATOCRIT 32.5 % (36.0-47.0); HEMOGLOBIN 10.6 g/dl (12.0-15.5); MEAN CORPUSCULAR HEMOGLOBIN 32.8 pg (27.0-33.0); MEAN CORPUSCULAR HGB CONC 32.6 g/dl (32.0-36.5); MEAN CORPUSCULAR VOLUME 100.6 fl (80.0-96.0); RED BLOOD COUNT 3.23 10^6/uL (4.00-5.40); WHITE BLOOD COUNT 12.3 10^3/uL (4.0-10.0)
[2020-06-01 20:00] VITALS: BP 145/83
[2020-06-02] VITALS: BP 132/70
[2020-06-02] MEDS: chlordiazePOXIDE 25 MG CAP PO SCH ×4 (03:55→16:04)
[2020-06-02 04:00] VITALS: BP 118/74
[2020-06-02 07:01] LABS: BLOOD UREA NITROGEN 10 MG/DL (7-18); CALCIUM LEVEL 8.4 MG/DL (8.5-10.1); CARBON DIOXIDE LEVEL 27 MEQ/L (21-32); CHLORIDE LEVEL 105 MEQ/L (98-107); CREATININE FOR GFR 0.63 MG/DL (0.55-1.30); GLOMERULAR FILTRATION RATE > 60.0 (>51); GLUCOSE, FASTING 92 MG/DL (70-100); MAGNESIUM LEVEL 1.5 MG/DL (1.8-2.4); SODIUM LEVEL 140 MEQ/L (136-145)
--- NOTE | 2020-06-02 07:28 | RO ---
DATE OF OPERATION: 05/31/2020 PREOPERATIVE DIAGNOSIS: Epistaxis. POSTOPERATIVE DIAGNOSIS: Epistaxis. PROCEDURE: Control of epistaxis, septoplasty, with cauterization and packing of nose. SURGEON: Dr. Jamal Talley INDICATIONS: This is a 54-year-old known alcoholic who presented to the emergency room with massive bleeding from her nose, initially, thought the bleeding was coming from the right nostril. She came in hypotensive and tachycardic and Rhino Rocket was placed on the left side which seemed to control the bleeding. She was sent to the floor for observation because of her alcoholic status. Six hours after admission, she started bleeding from the right nostril profusely. She is now brought to the operating room for exploration and control of the bleeding. PROCEDURE: After satisfactory general endotracheal anesthesia was administered, a pharyngeal pack placed. The nose was examined first by removing the Rhino Rocket. The left nostril was actually fairly clear of blood. The right nostril was actively bleeding bright red blood. It also appeared that the nasal septum was deflected significantly into the right side prohibiting good exploration and examination of that side. First, adrenalin-soaked pledgets were placed into the nasal cavity on both sides and then 1% Xylocaine with 1:100,000 epinephrine was used to inject the nasal septum. A Dennis incision was made on the left side of the nose. A mucoperichondrial flap and envelope was created on the left side of the nasal septum and carried down to the junction of the bony and cartilaginous septum. This was then with an elevator, and an envelope was then created on the right side of the septum. A Awilda scissors was used to make a cut high in the perpendicular plate in the mid portion of the vomer, and a central segment of the bony septum was resected. Next, with the round knife on the Edel elevator, a strip of cartilage was resected from the floor of the nose, mobilizing the quadrilateral cartilage and creating a swinging door. Then, a central segment of cartilaginous septum was resected, preserving a 1 cm dorsal and caudal strut. double-action rongeur was used to take down deflected portions of the perpendicular plate, as well. Finally, the maxillary crest spur was taken down after elevating mucoperisoteum off both sides of it with a chisel. A segment of the resected cartilage was morselized and placed back into the septal envelope. The incision was closed using an interrupted #5-0 chromic suture. Then a #4-0 plain suture was placed in a [id number] fashion through the two leaves of mucoperichondrium to appose them. Next, turbinate surgery done. She had markedly hypertrophic turbinates. They were medially infractured and using the turbinate Coblator probe, two parallel passes of the probe were made with 10 second oblation times for each of the set points on the probe. Finally, suction cautery used to coagulate the posterior inferior tip of the inferior turbinate. A #15 blade was used to make an incision on the anterior tip of the inferior turbinate. Once the septum was mobilized, exploration of the right nasal cavity was done. It appeared that the bleeding would be coming from anterior and superiorly, high up in the nasal cavity. Adrenalin pledgets were placed into this area effectively. This stopped the bleeding once this was done. Suction cautery was brought into place and several areas were cauterized aggressively to try to control any obvious bleeding sites. Next, the middle turbinate was medially infractured and the middle meatus was examined. Suction cautery was then used to coagulate the posterior aspect of the middle meatus lateral nasal wall hoping to get small branches of the sphenopalatine artery. Finally, Surgicel was turned into strip gauze and then packed into the middle meatus and packed into the anterior-superior nasal vault between the nasal bones and upper lateral cartilages in the septum. Then, NasoPore was placed into each side of the nose for support. Pharyngeal packing was removed. The throat was suctioned. The stomach was evacuated with an NG tube. The patient was then awakened, extubated, and sent to the recovery room in satisfactory condition. edited: 06/04/2020 0832 baljit VALENZUELA
--- NOTE | 2020-06-02 07:28 | RO ---
DATE OF OPERATION: 05/29/2020 PREOPERATIVE DIAGNOSIS: Left quadriceps tendon retear following surgery. POSTOPERATIVE DIAGNOSIS: Left quadriceps tendon retear following surgery. PLANNED PROCEDURE: Left quadriceps revision repair and possible Allograft tissue. PROCEDURE PERFORMED: Left quadriceps revision repair. SURGEON: Carlos Hernandez MD. ELECTRICIAN MASTER: Dragan Coats MD. ANESTHESIA: General. OPERATIVE PREAMBLE: This 55-year-old man was doing well following a quadriceps tendon repair. Unfortunately, a large dog hit into the back of his knee hyperflexing his knee, and he sustained immediate pain, pop, difficulty lifting his leg, regression in his physical therapy with MRI evidence for a retear. We discussed the pros, cons, risks, and benefits of going ahead with revision surgery. I marked the left lower extremity and proceeded to the surgical theatre. OPERATIVE REPORT: The patient was brought to the operating theatre and administered general anesthetic. He was placed supine on the operating table. A tourniquet was applied to the left thigh and appropriately padded. All bony prominences were padded. SCDs were used on the down leg. The limb was prepped and draped in the usual sterile fashion allowing over three minutes for prep solution drying time prior to draping. A time-out was performed to confirm the site, side, patient, and surgery. The limb was elevated and tourniquet inflated to 250 mmHg. Standard longitudinal incision was created through the same incision site. 10 mL of 0.5% Marcaine with 1:100,000 epinephrine was instilled around the incision site. Identified the site of retear. This was due to the sutures breaking near the attachment to the patella. I removed all the suture material that I was able to do. Drill holes were normally placed and still in place with no fracture. A slightly deeper trough was then created to create a bony bleeding surface for tendon healing. I used #5 Arthrex FiberWire in a running locking Krackow stitch to create four suture limbs. The two middle ones were passed through the middle drill hole and the medial and lateral were placed through each drill hole respectively. These were tied [id number] alternating half inches for five throws and cut short. The retinaculum was closed with #1 Vicryl suture. Prior to fixing the tendon, I did ensure that it came nicely to bone with minimal tensioning and releasing the adhesions. The tendon was approximately fixated in full extension with no gapping with 0-30 degree range of motion testing. Tourniquet was let down. The wound was irrigated. Subcutaneous tissues were closed with interrupted 2-0 Vicryl sutures. Prineo dressing placed in the standard fashion longitudinally overlying the incision for dressing and wound closure management. The patient was woken up from the general anesthetic. Tourniquet taken down prior to ending the case. The wound was thoroughly irrigated followed by application of the Prineo dressing. The patients left lower extremity was placed into a brace locked in full extension and appropriately padded where the strap went over the incision. The patient was transferred off the operating room table and transferred to the postanesthetic care unit in stable condition. All sponge, needle, and instrument counts were correct. No complications. Estimated blood loss 50 mL. Plan for the patient is to be toe-touch weightbearing and brace locked in full extension for at least six weeks. At this point he needs to slow down his rehab and I let him know this. The patient will be seen in the office in two weeks time. He will be discharged home according to day surgery criteria and prescription will be sent in to his pharmacy of choice similar to previous surgery. Patient had received a postoperative block as well due to adequate pain control. NICOLAS
[2020-06-02 08:00] VITALS: BP 112/78
[2020-06-02] MEDS: MAG SULF 1GM/100ML (MAG RUN) 1 GM in IV 1 EA IV SCH ×2 (08:31→10:45)
[2020-06-02] MEDS: AMOXICILLIN 500 MG CAP PO SCH ×2 (08:32→16:04)
[2020-06-02] MEDS: FOLIC ACID 1 MG TAB PO SCH (08:33)
[2020-06-02] MEDS: MULTIVITAMINS/MINERALS THERAP 1 TAB PO SCH (08:33)
[2020-06-02] MEDS: THIAMINE 100 MG TAB PO SCH (08:34)
[2020-06-02] MEDS: SODIUM CHLORIDE NASAL 0.65% SPRAY BTL (OCEAN) SCH ×2 (08:34→16:03)
[2020-06-02] MEDS ORDERED: POTASSIUM CHLORIDE 10 MEQ SR TABLET PO SCH (09:00)
[2020-06-02] MEDS ORDERED: MAGNESIUM OXIDE 400 MG TAB (MAG-OX) PO SCH (09:00)
[2020-06-02 10:18] LABS: PLTBLUE- EDTA FREE CALC 114 K/mm3 (172-450)
[2020-06-02 11:10] LABS: PLTBLUE- EDTA FREE MACHINE 104 10^3/uL (172-450)
[2020-06-02] MEDS ORDERED: OXAZ10CA3 PO (11:47)
[2020-06-02] MEDS ORDERED: MAG400TA PO (11:47)
[2020-06-02] MEDS ORDERED: AMOX500C PO (11:47)
[2020-06-02] MEDS ORDERED: FOLI1TAB11 PO (11:47)
[2020-06-02] MEDS ORDERED: THIA100T7 PO (11:47)
[2020-06-02 12:00] VITALS: BP 135/79
[2020-06-03] MEDS ORDERED: chlordiazePOXIDE 25 MG CAP PO SCH (02:00)
--- NOTE | 2020-06-03 14:36 | DS.PDOC ---
Discharge Summary General Date of Admission May 30, 2020 at 23:45 Date of Discharge 06/03/20 Discharge Summary PROCEDURES PERFORMED DURING STAY: Septoplasty, cautery and packing of nose on 06/01/20 DISCHARGE DIAGNOSES: Epistaxis from septal perforated ulcer Acute blood loss anemia from severe ongoing epistaxis for several days Hypotension Dehydration Alcohol intoxication followed by mild withdrawal. Hypomagnesemia Hypokalemia COMPLICATIONS/CHIEF COMPLAINT: Hypovolemic Shock. HOSPITAL COURSE: Patient is a 54-year-old female with alcohol abuse, Left vulvar cancer s/p surgery and radiation who came to emergency department with a nosebleed. Her nose is been bleeding off and on for the past day with no history of trauma. In the emergency department, patient vomited sherry blood after swallowing a large amount of blood. Patient then became hypotensive. Rhino Rocket was placed in the left nostril which stopped the bleeding. Since the patient was hypotensive, it was believed that she was possibly in hypovolemic shock. Patient was also tachycardic at this time. Patient was started on 2 units of blood and admitted to the hospital for epistaxis and hypotension. On the floor later at night she started bleeding from the right nose also. As per the nurses it would clot then the patient would again pick at the nose and it would start bleeding. Hypotension probably from dehydration due to alcohol abuse with some blood loss Now resolved. Acute blood loss anemia from massive epistaxis for 2 to 3 days received 2 units of blood. Epistaxis from septal ulcer POD # 2 from Septoplasty, cautery and packing of nose Amoxycillin, nasal spray, packing will remain on discharge follow up with Gerri in the office Alcohol withdrawal resolving will send home wih tapering course of serax. Hypomagnesemia replaced Thrombocytopenia from alcohol abuse. DISCHARGE MEDICATIONS: Please see below. ALLERGIES: Please see below. PHYSICAL EXAMINATION ON DISCHARGE: VITAL SIGNS: Please see below. General: Awake, alert oriented x 3, sitting up in bed in no acute distress. HEENT: Normocephalic, atraumatic, bandage around the nose. Neck: No lymphadenopathy or thyromegaly Cardiac: Tachycardic rate about 110, with a regular rhythm, no murmurs, normal S1, normal S2 Pulm: Clear to auscultation bilaterally. No wheezes, rhonchi, rales Abd: Nondistended, nontender to palpation, normal bowel sounds Ext: No edema bilateral lower extremities Skin: No evidence of rash. LABORATORY DATA: Please see below. ACTIVITY: [As tolerated]. DIET: regular DISPOSITION: 01 Home, Self-Care. DISCHARGE INSTRUCTIONS: Follow up with Dr Talley in 2 days DISCHARGE CONDITION: [Stable]. TIME SPENT ON DISCHARGE: 35 minutes. Vital Signs/I&Os Vital Signs Date Time Temp Pulse Resp B/P (MAP) Pulse Ox O2 Delivery O2 Flow Rate FiO2 06/02/20 12:00 98.7 109 18 135/79 (97) 98 Room Air 05/31/20 10:15 35 I&O- Last 24 Hours up to 6 AM 06/03/20 06:00 Intake Total 680 ml Balance 680 ml Microbiology Microbiology 05/30/20 Blood Culture - Preliminary, Resulted No Growth after 72 hours. All specime... 05/30/20 Blood Culture - Preliminary, Resulted No Growth after 72 hours. All specime... Discharge Medications Scheduled Amoxicillin (Amoxicillin) 500 Mg Capsule, 500 MG PO TID Folic Acid (Folic Acid) 1 Mg Tablet, 1 MG PO DAILY Magnesium Oxide (Magnesium Oxide) 400 Mg Tablet, 400 MG PO BID Oxazepam (Oxazepam) 10 Mg Capsule, 10 MG PO ASDIRECTED 1 cap threee times a day for 1 day then 1 cap two times a day for 1 day then 1 cap once for 1 day. Thiamine HCl (Thiamine HCl) 100 Mg Tablet, 100 MG PO DAILY Allergies Coded Allergies: No Known Allergies (Unverified , 05/09/18) TREY IZAGUIRRE MD Jun 03, 2020 14:36
== END 2020-06-02 17:05 | disposition home or self-care (01) | DRG 98 ==
LOC: M ED 20:14 → M ED INP 23:45 → ENRESERV 05-31 00:46 → M PCU 05-31 01:44 → ENRESERV 05-31 12:13
PROVIDERS: ADMIT Family Medicine; ATTEND Internal Medicine Nephrology
PROC: 30233N1 Transfusion of Nonautologous Red Blood Cells into Peripheral Vein, Percutaneous Approach (ICD-10-PCS; 2020-05-30)
PROC: 09UM07Z Supplement Nasal Septum with Autologous Tissue Substitute, Open Approach (ICD-10-PCS; 2020-05-31)
PROC: 2Y41X5Z Packing of Nasal Region using Packing Material (ICD-10-PCS; 2020-05-31)
PROC: 09BM0ZZ Excision of Nasal Septum, Open Approach (ICD-10-PCS; principal; 2020-05-31 07:13)
DX: R04.0 Epistaxis (principal); R57.1 Hypovolemic shock; D69.6 Thrombocytopenia, unspecified; E83.42 Hypomagnesemia; D62 Acute posthemorrhagic anemia; E86.0 Dehydration; F17.210 Nicotine dependence, cigarettes, uncomplicated; J34.2 Deviated nasal septum; F10.139 Alcohol abuse with withdrawal, unspecified; J34.89 Other specified disorders of nose and nasal sinuses; F10.129 Alcohol abuse with intoxication, unspecified; E87.6 Hypokalemia; Z20.828 Contact with and (suspected) exposure to other viral communicable diseases; Z85.828 Personal history of other malignant neoplasm of skin; Z85.44 Personal history of malignant neoplasm of other female genital organs

== ENCOUNTER 2022-12-02 22:03 | Inpatient (IN) | payer OTHER ==
[~2022-12-02] VITALS: Ht 160 cm; Wt 47.7 kg
[~2022-12-02 22:03] MED LIST changes: +AMOX500C PO; +MAGN400T35 PO; +OXAZ10CA3 PO; +THIA100T7 PO
[2022-12-02] MEDS ORDERED: NS 1,000 ML IV ONE (22:15)
[2022-12-02] MEDS ORDERED: LORazepam 2 MG/ML 1ML VIAL IV STA (22:21)
[2022-12-02 22:37] LABS: INR 1.09; PROTHROMBIN TIME 14.3 SECONDS (12.5-14.5)
[2022-12-02 22:38] LABS: PARTIAL THROMBOPLASTIN TIME 29.4 SECONDS (24.8-34.2)
[2022-12-02] MEDS ORDERED: NS 1,440 ML in IV 1 EA IV ONE (22:45)
[2022-12-02 22:54] LABS: CK-MB VALUE MASS 17.2 NG/ML (<3.6)
[2022-12-02 22:55] LABS: HEMATOCRIT 43.8 % (36.0-47.0); HEMOGLOBIN 14.3 g/dl (12.0-15.5); MEAN CORPUSCULAR HEMOGLOBIN 36.4 pg (27.0-33.0); MEAN CORPUSCULAR HGB CONC 32.6 g/dl (32.0-36.5); MEAN CORPUSCULAR VOLUME 111.5 fl (80.0-96.0); PLATELET COUNT, AUTOMATED 112 10^3/uL (150-450); RED BLOOD COUNT 3.93 10^6/uL (4.00-5.40)
[2022-12-02 22:56] LABS: ALBUMIN 2.7 G/DL (3.2-5.2); BILIRUBIN,DIRECT 0.4 MG/DL (<0.4); BILIRUBIN,TOTAL 0.9 MG/DL (0.3-1.2); CALCIUM LEVEL 9.8 MG/DL (8.5-10.1); CREATININE FOR GFR 1.2 MG/DL (0.55-1.30); TOTAL PROTEIN 6.7 G/DL (5.7-8.2)
[2022-12-02 22:57] LABS: THYROID STIMULATING HORMONE 1.795 uIU/ML (0.55-4.78)
[2022-12-02 22:58] LABS: FREE T4 0.95 NG/DL (0.89-1.76)
[2022-12-02 23:01] LABS: ATYPICAL LYMPH 1 % (0-5); BASOPHILS 1 % (0-1); LYMPHOCYTES 6 % (16-44); MONOCYTES 3 % (0-5); MYELOCYTES 1 % (0-0); NEUTROPHILS 38 % (28-66)
[2022-12-02 23:02] LABS: PLATELET ESTIMATE DECREASED (NORMAL); RSV AMPLIFICATION NEGATIVE (NEGATIVE)
[2022-12-02 23:03] LABS: DOHLE BODIES 2+; METAMYELOCYTES 5 % (0-0)
[2022-12-02] MEDS ORDERED: PIPERACILLIN/TAZOBACTAM SOD 4.5 GM in D5W MINI-BAG PLUS 50 ML IV ONE (23:05)
[2022-12-03] VITALS (50 sets, daily range): BP systolic 85–237; BP diastolic 51–114
[2022-12-03] MEDS ORDERED: HOME MED LIST COMPLETE! XX SCH ×2 (00:20→00:25)
[2022-12-03] MEDS ORDERED: MULTIVITAMIN PO (00:23)
[2022-12-03] MEDS ORDERED: D5W/0.9% SODIUM CHLORIDE 1,000 ML IV SCH (00:45)
[2022-12-03] MEDS ORDERED: diazePAM 10MG/2ML SYRINGE IV STA ×2 (01:56→05:35)
[2022-12-03 01:59] LABS: ABG BASE EXCESS -6.6 (-2.0-2.0); ABG HCO3 16.6 MMOL/L (22.0-26.0); ABG O2 SATURATION 94.1 % (95.0-99.0); ABG PARTIAL PRESSURE CO2 27.4 mmHg (35.0-45.0); ABG PARTIAL PRESSURE O2 73.8 mmHg (75.0-100.0); ABG TOTAL CO2 17.4 MMOL/L (22.0-29.0)
[2022-12-03] MEDS ORDERED: LORazepam 2 MG TAB PO PRN (02:25)
[2022-12-03] MEDS ORDERED: NS 1,000 ML IV SCH (02:25)
[2022-12-03 02:29] LABS: ETHYL ALCOHOL (ETHANOL) < 0.003 % (0.000-0.010)
[2022-12-03] MEDS ORDERED: LORazepam 2 MG/ML 1ML VIAL IV STA ×2 (03:02→05:50)
[2022-12-03] MEDS ORDERED: LORazepam 2 MG/ML 1ML VIAL IM PRN ×2 (03:05→03:15)
[2022-12-03] MEDS ORDERED: diazePAM 10MG/2ML SYRINGE IV ONE (03:35)
[2022-12-03] MEDS ORDERED: diazePAM 10MG/2ML SYRINGE As Ordered ONE (03:35)
[2022-12-03] MEDS: LORazepam 2 MG/ML 1ML VIAL IV PRN ×2 (04:37→05:34)
[2022-12-03 05:24] LABS: CK-MB VALUE MASS 27.7 NG/ML (<3.6); MAGNESIUM LEVEL 1.1 MG/DL (1.8-2.4)
[2022-12-03 05:26] LABS: BLOOD UREA NITROGEN 16 MG/DL (9-23); CALCIUM LEVEL 7.9 MG/DL (8.5-10.1); CARBON DIOXIDE LEVEL 22 MMOL/L (20-31); CHLORIDE LEVEL 100 MMOL/L (98-107); CREATININE FOR GFR 0.91 MG/DL (0.55-1.30); GLOMERULAR FILTRATION RATE > 60.0 (>51); GLUCOSE, FASTING 88 MG/DL (60-100); POTASSIUM SERUM 3.5 MMOL/L (3.5-5.1); SODIUM LEVEL 133 MMOL/L (136-145)
[2022-12-03] MEDS ORDERED: ACETAMINOPHEN 1000MG 100ML IV BAG IV ONE ×2 (05:35→05:40)
[2022-12-03 05:39] LABS: CPK CREATINE PHOSPHOKINASE 8494 U/L (34-145); MB/CK RELATIVE INDEX 0.32 (< OR =4)
[2022-12-03 05:41] LABS: FOLATE 8.1 NG/ML (>5.4)
[2022-12-03] MEDS ORDERED: ISOVUE-370 76% 100ML VIAL As Ordered ONE (05:43)
[2022-12-03] MEDS: MAG SULF 1GM/100ML (MAG RUN) 1 GM in IV 1 EA IV SCH ×2 (05:49→07:47)
[2022-12-03] MEDS ORDERED: PIPERACILLIN/TAZOBACTAM SOD 4.5 GM in D5W MINI-BAG PLUS 50 ML IV SCH (06:00)
[2022-12-03] MEDS ORDERED: PIPERACILLIN/TAZOBACTAM SOD 3.375 GM in D5W MINI-BAG PLUS 50 ML IV SCH (06:00)
[2022-12-03] MEDS ORDERED: HEPARIN SOD (PORCINE) 5000UNITS/ML 1ML VIAL/SYRINGE SC SCH (06:00)
[2022-12-03 06:14] LABS: HEMATOCRIT 37.1 % (36.0-47.0); HEMOGLOBIN 12.8 g/dl (12.0-15.5); MEAN CORPUSCULAR HGB CONC 34.5 g/dl (32.0-36.5); MEAN CORPUSCULAR VOLUME 104.2 fl (80.0-96.0); RED BLOOD COUNT 3.56 10^6/uL (4.00-5.40); WHITE BLOOD COUNT 13.2 10^3/uL (4.0-10.0)
[2022-12-03 06:21] LABS: ABG HCO3 21.1 MMOL/L (22.0-26.0); ABG O2 SATURATION 90.8 % (95.0-99.0); ABG PARTIAL PRESSURE CO2 31.4 mmHg (35.0-45.0); ABG PARTIAL PRESSURE O2 61.9 mmHg (75.0-100.0); ABG STANDARD HCO3 22.7 MMOL/L. (22.0-26.0); ABG TOTAL CO2 22.1 MMOL/L (22.0-29.0); ABG pH (ARTERIAL) 7.446 UNITS (7.350-7.450)
[2022-12-03 06:39] LABS: ALBUMIN 2.2 G/DL (3.2-5.2); ALKALINE PHOSPHATASE 31 U/L (46-116); ALT/SGPT 44 U/L (7.0-40); AST/SGOT 236 U/L (<34); BILIRUBIN,TOTAL 1.1 MG/DL (0.3-1.2); BLOOD UREA NITROGEN 16 MG/DL (9-23); CARBON DIOXIDE LEVEL 22 MMOL/L (20-31); CHLORIDE LEVEL 99 MMOL/L (98-107); CREATININE FOR GFR 0.86 MG/DL (0.55-1.30); GLOMERULAR FILTRATION RATE > 60.0 (>51); GLUCOSE, FASTING 93 MG/DL (60-100); MAGNESIUM LEVEL 1.1 MG/DL (1.8-2.4); POTASSIUM SERUM 3.4 MMOL/L (3.5-5.1); SODIUM LEVEL 133 MMOL/L (136-145); TOTAL PROTEIN 5.1 G/DL (5.7-8.2)
[2022-12-03] MEDS ORDERED: MAG SULF 1GM/100ML (MAG RUN) 1 GM in IV 1 EA IV ONE (06:55)
[2022-12-03 07:14] LABS: METAMYELOCYTES 4 % (0-0); MONOCYTES 3 % (0-5); MYELOCYTES 2 % (0-0); NEUTROPHILS 42 % (28-66)
[2022-12-03 07:15] LABS: PLATELET CLUMPS MODERATE AMT; PLATELET ESTIMATE INVALID (NORMAL); POLYCHROMASIA 1+
[2022-12-03 07:36] LABS: PHOSPHORUS LEVEL 2.8 MG/DL (2.5-4.9)
[2022-12-03] MEDS ORDERED: dexmedeTOMidine 200 MCG in IV 1 EA IV SCH (07:45)
[2022-12-03] MEDS ORDERED: HEPARIN SOD (PORCINE) 5000UNITS/ML 1ML VIAL/SYRINGE IV PRN (07:45)
[2022-12-03] MEDS ORDERED: HEPARIN SOD (PORCINE) 5000UNITS/ML 1ML VIAL/SYRINGE IV ONE (07:45)
[2022-12-03] MEDS ORDERED: diazePAM 10MG/2ML SYRINGE IV SCH (08:00)
[2022-12-03 08:29] LABS: HEMATOCRIT 34.4 % (36.0-47.0); HEMOGLOBIN 12.1 g/dl (12.0-15.5); MEAN CORPUSCULAR HEMOGLOBIN 36.6 pg (27.0-33.0); MEAN CORPUSCULAR HGB CONC 35.2 g/dl (32.0-36.5); MEAN CORPUSCULAR VOLUME 103.9 fl (80.0-96.0); RED BLOOD COUNT 3.31 10^6/uL (4.00-5.40); WHITE BLOOD COUNT 12.6 10^3/uL (4.0-10.0)
[2022-12-03] MEDS ORDERED: HEPARIN DRIP 25,000 UNITS in IV 1 EA IV SCH (08:30)
[2022-12-03 08:39] LABS: INR 1.12; PROTHROMBIN TIME 14.6 SECONDS (12.5-14.5)
[2022-12-03 08:40] LABS: PARTIAL THROMBOPLASTIN TIME 43.5 SECONDS (24.8-34.2)
[2022-12-03] MEDS: AZITHROMYCIN INJ 500 MG, VIAL MATE ADAPTER 1 EACH in NS 250 ML IV SCH (08:49)
[2022-12-03] MEDS: dexmedeTOMidine 200 MCG in IV 1 EA IV SCH ×2 (08:51→17:04)
[2022-12-03 08:59] LABS: ATYPICAL LYMPH 1 % (0-5); LYMPHOCYTES 1 % (16-44); METAMYELOCYTES 3 % (0-0); MONOCYTES 2 % (0-5); MYELOCYTES 2 % (0-0); NEUTROPHILS 49 % (28-66); PLATELET CLUMPS MODERATE AMT; PLATELET ESTIMATE INVALID (NORMAL)
[2022-12-03 09:00] LABS: POLYCHROMASIA 1+
[2022-12-03] MEDS ORDERED: MAG SULF 1GM/100ML (MAG RUN) IV SCH ×2 (09:00)
[2022-12-03] MEDS: THIAMINE 200MG 2ML VIAL IV SCH (09:57)
[2022-12-03] MEDS ORDERED: MAG SULF 1GM/100ML (MAG RUN) IV ONE ×2 (10:00)
[2022-12-03] MEDS: FOLIC ACID 1 MG in NS 50 ML IV SCH (10:00)
[2022-12-03] MEDS ORDERED: MULTIVITAMIN -ADULT INJECTION 10 ML, THIAMINE INJection 100 MG, FOLIC ACID 1 MG in NS 1... IV ONE (12:00)
[2022-12-03] MEDS: cefTRIAXone SOD 1 GM in D5W MINI-BAG PLUS 50 ML IV SCH (12:53)
[2022-12-03 13:44] LABS: ALBUMIN 1.8 G/DL (3.2-5.2); ALKALINE PHOSPHATASE 38 U/L (46-116); ALT/SGPT 44 U/L (7.0-40); AST/SGOT 224 U/L (<34); BILIRUBIN,TOTAL 0.9 MG/DL (0.3-1.2); BLOOD UREA NITROGEN 17 MG/DL (9-23); CALCIUM LEVEL 7.8 MG/DL (8.5-10.1); CARBON DIOXIDE LEVEL 20 MMOL/L (20-31); CHLORIDE LEVEL 102 MMOL/L (98-107); CREATININE FOR GFR 0.67 MG/DL (0.55-1.30); GLOMERULAR FILTRATION RATE > 60.0 (>51); GLUCOSE, FASTING 123 MG/DL (60-100); MAGNESIUM LEVEL 2.4 MG/DL (1.8-2.4); POTASSIUM SERUM 3.7 MMOL/L (3.5-5.1); SODIUM LEVEL 131 MMOL/L (136-145); TOTAL PROTEIN 4.6 G/DL (5.7-8.2)
[2022-12-03] MEDS: PANTOPRAZOLE 40MG VIAL IV SCH (20:29)
[2022-12-04] VITALS (18 sets, daily range): BP systolic 107–150; BP diastolic 66–88
[2022-12-04] MEDS: LORazepam 2 MG/ML 1ML VIAL IV PRN (04:04)
[2022-12-04] MEDS ORDERED: FUROSEMIDE 20MG/2ML VIAL IV ONE (04:10)
[2022-12-04 04:20] LABS: HEMATOCRIT 33.9 % (36.0-47.0); HEMOGLOBIN 11.7 g/dl (12.0-15.5); MEAN CORPUSCULAR HEMOGLOBIN 36.2 pg (27.0-33.0); MEAN CORPUSCULAR HGB CONC 34.5 g/dl (32.0-36.5); RED BLOOD COUNT 3.23 10^6/uL (4.00-5.40)
[2022-12-04 04:23] LABS: PLATELET COUNT, AUTOMATED 67 10^3/uL (150-450)
[2022-12-04 04:33] LABS: INR 1.01; PROTHROMBIN TIME 13.5 SECONDS (12.5-14.5)
[2022-12-04 04:34] LABS: PARTIAL THROMBOPLASTIN TIME 63.3 SECONDS (24.8-34.2)
[2022-12-04 04:47] LABS: LYMPHOCYTES 3 % (16-44); METAMYELOCYTES 1 % (0-0); MONOCYTES 5 % (0-5); MYELOCYTES 2 % (0-0); NEUTROPHILS 83 % (28-66); PLATELET ESTIMATE DECREASED (NORMAL)
[2022-12-04 04:55] LABS: ALBUMIN 1.8 G/DL (3.2-5.2); ALKALINE PHOSPHATASE 43 U/L (46-116); ALT/SGPT 46 U/L (7.0-40); AST/SGOT 180 U/L (<34); BILIRUBIN,TOTAL 0.6 MG/DL (0.3-1.2); BLOOD UREA NITROGEN 20 MG/DL (9-23); CARBON DIOXIDE LEVEL 24 MMOL/L (20-31); CHLORIDE LEVEL 105 MMOL/L (98-107); CREATININE FOR GFR 0.64 MG/DL (0.55-1.30); GLOMERULAR FILTRATION RATE > 60.0 (>51); GLUCOSE, FASTING 85 MG/DL (60-100); MAGNESIUM LEVEL 1.5 MG/DL (1.8-2.4); POTASSIUM SERUM 3.2 MMOL/L (3.5-5.1); SODIUM LEVEL 139 MMOL/L (136-145); TOTAL PROTEIN 4.7 G/DL (5.7-8.2)
[2022-12-04] MEDS: AZITHROMYCIN INJ 500 MG, VIAL MATE ADAPTER 1 EACH in NS 250 ML IV SCH (07:52)
[2022-12-04] MEDS: dexmedeTOMidine 200 MCG in IV 1 EA IV SCH ×3 (07:53→20:20)
[2022-12-04] MEDS ORDERED: KCL 20MEQ IN 100ML SWI (KRUN) 20 MEQ in IV 1 EA IV ONE ×2 (08:10)
[2022-12-04] MEDS: FOLIC ACID 1 MG in NS 50 ML IV SCH (08:54)
[2022-12-04] MEDS: THIAMINE 200MG 2ML VIAL IV SCH (09:39)
[2022-12-04] MEDS: KCL 10MEQ/100ML SWI (KRUN) IV SCH ×4 (10:03→11:21)
[2022-12-04] MEDS: MAG SULF 1GM/100ML (MAG RUN) 1 GM in IV 1 EA IV SCH ×2 (12:29→14:02)
[2022-12-04] MEDS: cefTRIAXone SOD 1 GM in D5W MINI-BAG PLUS 50 ML IV SCH (13:11)
[2022-12-04] MEDS: PANTOPRAZOLE 40MG VIAL IV SCH (20:21)
[2022-12-05] VITALS (24 sets, daily range): BP systolic 121–170; BP diastolic 71–98
[2022-12-05] MEDS: dexmedeTOMidine 200 MCG in IV 1 EA IV SCH (03:20)
[2022-12-05 05:29] LABS: BASO # 0.1 10^3/uL (0.0-0.2); BASO % 0.4 % (0.0-1.0); HEMATOCRIT 34.6 % (36.0-47.0); HEMOGLOBIN 11.9 g/dl (12.0-15.5); LYMPH # 0.5 10^3/uL (1.5-5.0); LYMPH % 3.3 % (24.0-44.0); MEAN CORPUSCULAR HGB CONC 34.4 g/dl (32.0-36.5); MEAN CORPUSCULAR VOLUME 104.5 fl (80.0-96.0); MONO % 7.3 % (2.0-8.0); NEUTROPHILS # 12.4 10^3/uL (1.5-8.5); NEUTROPHILS % 87.9 % (36.0-66.0); RED BLOOD COUNT 3.31 10^6/uL (4.00-5.40); WHITE BLOOD COUNT 14.1 10^3/uL (4.0-10.0)
[2022-12-05 05:49] LABS: ALBUMIN 2.2 G/DL (3.2-5.2); ALKALINE PHOSPHATASE 65 U/L (46-116); ALT/SGPT 34 U/L (7.0-40); AST/SGOT 98 U/L (<34); BILIRUBIN,TOTAL 0.6 MG/DL (0.3-1.2); BLOOD UREA NITROGEN 16 MG/DL (9-23); CALCIUM LEVEL 8.9 MG/DL (8.5-10.1); CARBON DIOXIDE LEVEL 26 MMOL/L (20-31); CHLORIDE LEVEL 103 MMOL/L (98-107); CREATININE FOR GFR 0.59 MG/DL (0.55-1.30); GLOMERULAR FILTRATION RATE > 60.0 (>51); GLUCOSE, FASTING 82 MG/DL (60-100); MAGNESIUM LEVEL 1.2 MG/DL (1.8-2.4); POTASSIUM SERUM 2.2 MMOL/L (3.5-5.1); SODIUM LEVEL 141 MMOL/L (136-145); TOTAL PROTEIN 5.7 G/DL (5.7-8.2)
[2022-12-05] MEDS: MAG SULF 1GM/100ML (MAG RUN) 1 GM in IV 1 EA IV SCH ×3 (06:18→23:37)
[2022-12-05] MEDS: KCL 10MEQ/100ML SWI (KRUN) 10 MEQ in IV 1 EA IV SCH ×4 (06:27→11:06)
[2022-12-05] MEDS: OXAZEPAM 10MG CAP PO SCH ×2 (08:23→20:08)
[2022-12-05] MEDS: AZITHROMYCIN INJ 500 MG, VIAL MATE ADAPTER 1 EACH in NS 250 ML IV SCH (08:51)
[2022-12-05] MEDS: THIAMINE 200MG 2ML VIAL IV SCH (08:58)
[2022-12-05 09:18] LABS: PLTBLUE- EDTA FREE CALC 96 K/mm3 (172-450)
[2022-12-05 09:20] LABS: PLTBLUE- EDTA FREE MACHINE 87 10^3/uL (172-450)
[2022-12-05] MEDS: FOLIC ACID 1 MG in NS 50 ML IV SCH (09:32)
[2022-12-05] MEDS: cefTRIAXone SOD 1 GM in D5W MINI-BAG PLUS 50 ML IV SCH (10:43)
[2022-12-05] MEDS: LORazepam 2 MG/ML 1ML VIAL IV PRN ×2 (12:27→15:37)
[2022-12-05] MEDS: PANTOPRAZOLE 40MG VIAL IV SCH (20:08)
[2022-12-05] MEDS: NS 500 ML IV SCH (21:37)
[2022-12-05 22:41] LABS: BLOOD UREA NITROGEN 10 MG/DL (9-23); CALCIUM LEVEL 8.3 MG/DL (8.5-10.1); CARBON DIOXIDE LEVEL 27 MMOL/L (20-31); CHLORIDE LEVEL 102 MMOL/L (98-107); CREATININE FOR GFR 0.54 MG/DL (0.55-1.30); GLOMERULAR FILTRATION RATE > 60.0 (>51); GLUCOSE, FASTING 134 MG/DL (60-100); SODIUM LEVEL 141 MMOL/L (136-145)
[2022-12-06] VITALS (22 sets, daily range): BP systolic 138–178; BP diastolic 79–103
[2022-12-06] MEDS: MAG SULF 1GM/100ML (MAG RUN) 1 GM in IV 1 EA IV SCH ×5 (00:41→23:55)
[2022-12-06] MEDS: NS 500 ML IV SCH (02:15)
[2022-12-06] MEDS: KCL 10MEQ/100ML SWI (KRUN) 10 MEQ in IV 1 EA IV SCH ×11 (02:59→23:56)
[2022-12-06] MEDS ORDERED: MAGNESIUM SULFATE IN WATER 2 GM in IV 1 EA IV STA ×2 (07:04)
[2022-12-06 07:53] LABS: ALBUMIN 1.9 G/DL (3.2-5.2); ALKALINE PHOSPHATASE 124 U/L (46-116); ALT/SGPT 72 U/L (7.0-40); AST/SGOT 157 U/L (<34); BILIRUBIN,TOTAL 1.1 MG/DL (0.3-1.2); BLOOD UREA NITROGEN 10 MG/DL (9-23); CALCIUM LEVEL 8.2 MG/DL (8.5-10.1); CARBON DIOXIDE LEVEL 29 MMOL/L (20-31); CHLORIDE LEVEL 99 MMOL/L (98-107); CREATININE FOR GFR 0.48 MG/DL (0.55-1.30); GLOMERULAR FILTRATION RATE > 60.0 (>51); GLUCOSE, FASTING 111 MG/DL (60-100); MAGNESIUM LEVEL 1.6 MG/DL (1.8-2.4); POTASSIUM SERUM 2.5 MMOL/L (3.5-5.1); SODIUM LEVEL 139 MMOL/L (136-145); TOTAL PROTEIN 5.3 G/DL (5.7-8.2)
[2022-12-06] MEDS: OXAZEPAM 10MG CAP PO SCH ×2 (08:20→21:00)
[2022-12-06] MEDS: THIAMINE 200MG 2ML VIAL IV SCH (08:21)
[2022-12-06 08:30] LABS: PLTBLUE- EDTA FREE CALC 112 K/mm3 (172-450)
[2022-12-06] MEDS ORDERED: MAGNESIUM SULFATE IN WATER 2 GM in IV 1 EA IV ONE ×2 (08:30)
[2022-12-06 08:32] LABS: BASO # 0.1 10^3/uL (0.0-0.2); BASO % 0.6 % (0.0-1.0); HEMATOCRIT 38.5 % (36.0-47.0); HEMOGLOBIN 13.5 g/dl (12.0-15.5); LYMPH # 0.5 10^3/uL (1.5-5.0); LYMPH % 2.9 % (24.0-44.0); MEAN CORPUSCULAR HEMOGLOBIN 36.6 pg (27.0-33.0); MEAN CORPUSCULAR HGB CONC 35.1 g/dl (32.0-36.5); MEAN CORPUSCULAR VOLUME 104.3 fl (80.0-96.0); MONO % 10.4 % (2.0-8.0); NEUTROPHILS # 13.4 10^3/uL (1.5-8.5); NEUTROPHILS % 84.9 % (36.0-66.0); RED BLOOD COUNT 3.69 10^6/uL (4.00-5.40); WHITE BLOOD COUNT 15.8 10^3/uL (4.0-10.0)
[2022-12-06 09:14] LABS: MONO # 1.6 10^3/uL (0.0-0.8)
[2022-12-06] MEDS: FOLIC ACID 1 MG in NS 50 ML IV SCH (09:27)
[2022-12-06] MEDS: POTASSIUM CHLORIDE INJ 20 MEQ in D5W/LR 1,000 ML IV SCH ×2 (09:27→18:45)
[2022-12-06 09:47] LABS: PLTBLUE- EDTA FREE MACHINE 102 10^3/uL (172-450)
[2022-12-06] MEDS: cefTRIAXone SOD 1 GM in D5W MINI-BAG PLUS 50 ML IV SCH (11:33)
[2022-12-06 12:34] LABS: BLOOD UREA NITROGEN 11 MG/DL (9-23); CALCIUM LEVEL 7.9 MG/DL (8.5-10.1); CARBON DIOXIDE LEVEL 31 MMOL/L (20-31); CHLORIDE LEVEL 100 MMOL/L (98-107); CREATININE FOR GFR 0.48 MG/DL (0.55-1.30); GLOMERULAR FILTRATION RATE > 60.0 (>51); GLUCOSE, FASTING 161 MG/DL (60-100); PHOSPHORUS LEVEL 2.1 MG/DL (2.5-4.9); POTASSIUM SERUM 2.2 MMOL/L (3.5-5.1); SODIUM LEVEL 141 MMOL/L (136-145)
[2022-12-06 18:22] LABS: HEMATOCRIT 39.6 % (36.0-47.0); HEMOGLOBIN 13.4 g/dl (12.0-15.5); MEAN CORPUSCULAR HEMOGLOBIN 35.5 pg (27.0-33.0); MEAN CORPUSCULAR HGB CONC 33.8 g/dl (32.0-36.5); PLATELET COUNT, AUTOMATED 114 10^3/uL (150-450); RED BLOOD COUNT 3.77 10^6/uL (4.00-5.40)
[2022-12-06 18:52] LABS: BLOOD UREA NITROGEN 10 MG/DL (9-23); CALCIUM LEVEL 7.8 MG/DL (8.5-10.1); CARBON DIOXIDE LEVEL 31 MMOL/L (20-31); CHLORIDE LEVEL 100 MMOL/L (98-107); CREATININE FOR GFR 0.47 MG/DL (0.55-1.30); GLOMERULAR FILTRATION RATE > 60.0 (>51); GLUCOSE, FASTING 158 MG/DL (60-100); POTASSIUM SERUM 2.8 MMOL/L (3.5-5.1); SODIUM LEVEL 140 MMOL/L (136-145)
[2022-12-06 18:57] LABS: ALBUMIN 1.8 G/DL (3.2-5.2); ALKALINE PHOSPHATASE 121 U/L (46-116); ALT/SGPT 83 U/L (7.0-40); AST/SGOT 173 U/L (<34); BLOOD UREA NITROGEN 9 MG/DL (9-23); CALCIUM LEVEL 8.4 MG/DL (8.5-10.1); CARBON DIOXIDE LEVEL 32 MMOL/L (20-31); CHLORIDE LEVEL 100 MMOL/L (98-107); CREATININE FOR GFR 0.46 MG/DL (0.55-1.30); GLOMERULAR FILTRATION RATE > 60.0 (>51); GLUCOSE, FASTING 158 MG/DL (60-100); POTASSIUM SERUM 2.7 MMOL/L (3.5-5.1); SODIUM LEVEL 138 MMOL/L (136-145); TOTAL PROTEIN 5.2 G/DL (5.7-8.2)
[2022-12-06 20:10] LABS: MAGNESIUM LEVEL 1.4 MG/DL (1.8-2.4)
[2022-12-06] MEDS: PANTOPRAZOLE 40MG VIAL IV SCH (21:10)
[2022-12-07] VITALS (14 sets, daily range): BP systolic 129–161; BP diastolic 79–95
[2022-12-07] MEDS: MAG SULF 1GM/100ML (MAG RUN) 1 GM in IV 1 EA IV SCH ×6 (01:01→23:12)
[2022-12-07 05:58] LABS: BASO % 0.3 % (0.0-1.0); EOS % 0.3 % (0.0-3.0); HEMATOCRIT 34.2 % (36.0-47.0); HEMOGLOBIN 11.8 g/dl (12.0-15.5); LYMPH # 0.4 10^3/uL (1.5-5.0); LYMPH % 4.8 % (24.0-44.0); MEAN CORPUSCULAR HEMOGLOBIN 36.1 pg (27.0-33.0); MEAN CORPUSCULAR HGB CONC 34.5 g/dl (32.0-36.5); MEAN CORPUSCULAR VOLUME 104.6 fl (80.0-96.0); MONO # 0.7 10^3/uL (0.0-0.8); MONO % 7.2 % (2.0-8.0); NEUTROPHILS # 7.8 10^3/uL (1.5-8.5); NEUTROPHILS % 86.6 % (36.0-66.0); PLATELET COUNT, AUTOMATED 136 10^3/uL (150-450); RED BLOOD COUNT 3.27 10^6/uL (4.00-5.40)
[2022-12-07 05:59] LABS: ALBUMIN 1.7 G/DL (3.2-5.2); ALKALINE PHOSPHATASE 119 U/L (46-116); ALT/SGPT 88 U/L (7.0-40); AST/SGOT 164 U/L (<34); BILIRUBIN,TOTAL 0.9 MG/DL (0.3-1.2); BLOOD UREA NITROGEN 7 MG/DL (9-23); CALCIUM LEVEL 7.8 MG/DL (8.5-10.1); CARBON DIOXIDE LEVEL 33 MMOL/L (20-31); CHLORIDE LEVEL 99 MMOL/L (98-107); CREATININE FOR GFR 0.46 MG/DL (0.55-1.30); GLOMERULAR FILTRATION RATE > 60.0 (>51); GLUCOSE, FASTING 147 MG/DL (60-100); MAGNESIUM LEVEL 1.7 MG/DL (1.8-2.4); POTASSIUM SERUM 2.6 MMOL/L (3.5-5.1); SODIUM LEVEL 137 MMOL/L (136-145); TOTAL PROTEIN 4.7 G/DL (5.7-8.2)
[2022-12-07] MEDS: KCL 40MEQ IN D5/0.45NS 1000ML 1,000 ML IV SCH ×2 (08:30→23:13)
[2022-12-07] MEDS: THIAMINE 200MG 2ML VIAL IV SCH (08:31)
[2022-12-07] MEDS: KCL 10MEQ/100ML SWI (KRUN) 10 MEQ in IV 1 EA IV SCH ×5 (08:31→13:43)
[2022-12-07] MEDS: OXAZEPAM 10MG CAP PO SCH ×2 (08:39→20:54)
[2022-12-07] MEDS: FOLIC ACID 1 MG in NS 50 ML IV SCH (09:45)
[2022-12-07] MEDS: cefTRIAXone SOD 1 GM in D5W MINI-BAG PLUS 50 ML IV SCH (12:02)
[2022-12-07] MEDS ORDERED: LIDOCAINE 1% MDV 20ML VIAL As Ordered ONE (15:37)
[2022-12-07 17:56] LABS: ALBUMIN 2.1 G/DL (3.2-5.2); ALKALINE PHOSPHATASE 113 U/L (46-116); ALT/SGPT 82 U/L (7.0-40); AST/SGOT 136 U/L (<34); BILIRUBIN,TOTAL 0.8 MG/DL (0.3-1.2); BLOOD UREA NITROGEN 7 MG/DL (9-23); CALCIUM LEVEL 8.1 MG/DL (8.5-10.1); CARBON DIOXIDE LEVEL 30 MMOL/L (20-31); CHLORIDE LEVEL 103 MMOL/L (98-107); CREATININE FOR GFR 0.46 MG/DL (0.55-1.30); GLOMERULAR FILTRATION RATE > 60.0 (>51); GLUCOSE, FASTING 118 MG/DL (60-100); MAGNESIUM LEVEL 1.3 MG/DL (1.8-2.4); SODIUM LEVEL 137 MMOL/L (136-145); TOTAL PROTEIN 5.5 G/DL (5.7-8.2)
[2022-12-07] MEDS: PANTOPRAZOLE 40MG VIAL IV SCH (20:44)
[2022-12-08] MEDS: MAG SULF 1GM/100ML (MAG RUN) 1 GM in IV 1 EA IV SCH ×4 (00:15→21:58)
[2022-12-08 00:30] VITALS: BP 149/78
[2022-12-08] MEDS: KCL 10MEQ/100ML SWI (KRUN) 10 MEQ in IV 1 EA IV SCH ×4 (01:34→04:47)
[2022-12-08 04:00] VITALS: BP 134/81
[2022-12-08 05:34] LABS: BASO % 0.3 % (0.0-1.0); EOS # 0.1 10^3/uL (0.0-0.5); EOS % 0.6 % (0.0-3.0); HEMATOCRIT 32.8 % (36.0-47.0); HEMOGLOBIN 11.2 g/dl (12.0-15.5); LYMPH # 0.7 10^3/uL (1.5-5.0); LYMPH % 7.2 % (24.0-44.0); MEAN CORPUSCULAR HEMOGLOBIN 35.9 pg (27.0-33.0); MEAN CORPUSCULAR HGB CONC 34.1 g/dl (32.0-36.5); MEAN CORPUSCULAR VOLUME 105.1 fl (80.0-96.0); MONO # 0.6 10^3/uL (0.0-0.8); MONO % 6.4 % (2.0-8.0); NEUTROPHILS # 7.9 10^3/uL (1.5-8.5); NEUTROPHILS % 84.5 % (36.0-66.0); PLATELET COUNT, AUTOMATED 212 10^3/uL (150-450); RED BLOOD COUNT 3.12 10^6/uL (4.00-5.40); WHITE BLOOD COUNT 9.4 10^3/uL (4.0-10.0)
[2022-12-08] MEDS: SODIUM CHLORIDE 0.9% INJ 10 ML SYR IV SCH ×2 (06:00→18:02)
[2022-12-08 06:14] LABS: ALBUMIN 1.7 G/DL (3.2-5.2); ALKALINE PHOSPHATASE 119 U/L (46-116); ALT/SGPT 89 U/L (7.0-40); AST/SGOT 122 U/L (<34); BILIRUBIN,TOTAL 0.9 MG/DL (0.3-1.2); BLOOD UREA NITROGEN 9 MG/DL (9-23); CARBON DIOXIDE LEVEL 27 MMOL/L (20-31); CHLORIDE LEVEL 104 MMOL/L (98-107); CREATININE FOR GFR 0.49 MG/DL (0.55-1.30); GLOMERULAR FILTRATION RATE > 60.0 (>51); GLUCOSE, FASTING 89 MG/DL (60-100); MAGNESIUM LEVEL 1.7 MG/DL (1.8-2.4); POTASSIUM SERUM 4.5 MMOL/L (3.5-5.1); SODIUM LEVEL 135 MMOL/L (136-145); TOTAL PROTEIN 4.8 G/DL (5.7-8.2)
[2022-12-08 08:00] VITALS: BP 147/86
[2022-12-08] MEDS: OXAZEPAM 10MG CAP PO SCH ×2 (09:00→21:40)
[2022-12-08] MEDS ORDERED: MAG SULF 1GM/100ML (MAG RUN) 1 GM in IV 1 EA IV ONE (10:00)
[2022-12-08] MEDS: THIAMINE 200MG 2ML VIAL IV SCH (10:03)
[2022-12-08] MEDS: FOLIC ACID 1 MG in NS 50 ML IV SCH (10:03)
[2022-12-08] MEDS: cefTRIAXone SOD 1 GM in D5W MINI-BAG PLUS 50 ML IV SCH (11:07)
[2022-12-08 12:00] VITALS: BP 141/86
[2022-12-08] MEDS: KCL 40MEQ IN D5/0.45NS 1000ML 1,000 ML IV SCH ×2 (13:10→23:00)
[2022-12-08 16:00] VITALS: BP 144/88
[2022-12-08 18:23] LABS: BLOOD UREA NITROGEN 9 MG/DL (9-23); CALCIUM LEVEL 8.5 MG/DL (8.5-10.1); CARBON DIOXIDE LEVEL 25 MMOL/L (20-31); CHLORIDE LEVEL 105 MMOL/L (98-107); CREATININE FOR GFR 0.51 MG/DL (0.55-1.30); GLOMERULAR FILTRATION RATE > 60.0 (>51); GLUCOSE, FASTING 116 MG/DL (60-100); MAGNESIUM LEVEL 1.2 MG/DL (1.8-2.4); POTASSIUM SERUM 4.3 MMOL/L (3.5-5.1); SODIUM LEVEL 136 MMOL/L (136-145)
[2022-12-08 20:00] VITALS: BP 127/78
[2022-12-08] MEDS: PANTOPRAZOLE 40MG VIAL IV SCH (20:51)
[2022-12-09 00:22] VITALS: BP 140/81
[2022-12-09 04:09] VITALS: BP 137/86
[2022-12-09 04:50] LABS: BASO % 0.3 % (0.0-1.0); EOS # 0.1 10^3/uL (0.0-0.5); EOS % 0.9 % (0.0-3.0); HEMATOCRIT 32.6 % (36.0-47.0); LYMPH # 0.8 10^3/uL (1.5-5.0); LYMPH % 7.7 % (24.0-44.0); MEAN CORPUSCULAR HEMOGLOBIN 35.8 pg (27.0-33.0); MEAN CORPUSCULAR HGB CONC 33.7 g/dl (32.0-36.5); MEAN CORPUSCULAR VOLUME 106.2 fl (80.0-96.0); MONO # 0.7 10^3/uL (0.0-0.8); MONO % 7.2 % (2.0-8.0); NEUTROPHILS # 8.2 10^3/uL (1.5-8.5); NEUTROPHILS % 82.5 % (36.0-66.0); PLATELET COUNT, AUTOMATED 254 10^3/uL (150-450); RED BLOOD COUNT 3.07 10^6/uL (4.00-5.40); WHITE BLOOD COUNT 9.9 10^3/uL (4.0-10.0)
[2022-12-09 05:26] LABS: ALBUMIN 1.8 G/DL (3.2-5.2); ALKALINE PHOSPHATASE 127 U/L (46-116); ALT/SGPT 82 U/L (7.0-40); AST/SGOT 86 U/L (<34); BILIRUBIN,TOTAL 0.8 MG/DL (0.3-1.2); BLOOD UREA NITROGEN 7 MG/DL (9-23); CALCIUM LEVEL 7.8 MG/DL (8.5-10.1); CARBON DIOXIDE LEVEL 24 MMOL/L (20-31); CHLORIDE LEVEL 108 MMOL/L (98-107); CREATININE FOR GFR 0.55 MG/DL (0.55-1.30); GLOMERULAR FILTRATION RATE > 60.0 (>51); GLUCOSE, FASTING 109 MG/DL (60-100); MAGNESIUM LEVEL 1.4 MG/DL (1.8-2.4); POTASSIUM SERUM 4.4 MMOL/L (3.5-5.1); SODIUM LEVEL 138 MMOL/L (136-145); TOTAL PROTEIN 4.3 G/DL (5.7-8.2)
[2022-12-09] MEDS: SODIUM CHLORIDE 0.9% INJ 10 ML SYR IV SCH ×2 (05:55→17:14)
[2022-12-09] MEDS: MAG SULF 1GM/100ML (MAG RUN) 1 GM in IV 1 EA IV SCH ×3 (05:58→09:35)
[2022-12-09 08:00] VITALS: BP 154/89
[2022-12-09] MEDS: THIAMINE 200MG 2ML VIAL IV SCH (08:29)
[2022-12-09] MEDS: OXAZEPAM 10MG CAP PO SCH ×2 (08:29→21:39)
[2022-12-09] MEDS: KCL 40MEQ IN D5/0.45NS 1000ML 1,000 ML IV SCH ×3 (08:51→18:38)
[2022-12-09] MEDS: FOLIC ACID 1 MG in NS 50 ML IV SCH (11:35)
[2022-12-09] MEDS: cefTRIAXone SOD 1 GM in D5W MINI-BAG PLUS 50 ML IV SCH (11:36)
[2022-12-09 12:00] VITALS: BP 118/79
[2022-12-09 16:00] VITALS: BP 129/73
[2022-12-09 20:00] VITALS: BP 140/73
[2022-12-09] MEDS: PANTOPRAZOLE 40MG VIAL IV SCH (21:39)
[2022-12-10] VITALS: BP 133/73
[2022-12-10 04:00] VITALS: BP 147/78
[2022-12-10 04:21] LABS: HEMATOCRIT 34.3 % (36.0-47.0); HEMOGLOBIN 11.2 g/dl (12.0-15.5); MEAN CORPUSCULAR HEMOGLOBIN 35.1 pg (27.0-33.0); MEAN CORPUSCULAR HGB CONC 32.7 g/dl (32.0-36.5); MEAN CORPUSCULAR VOLUME 107.5 fl (80.0-96.0); PLATELET COUNT, AUTOMATED 301 10^3/uL (150-450); RED BLOOD COUNT 3.19 10^6/uL (4.00-5.40); WHITE BLOOD COUNT 9.1 10^3/uL (4.0-10.0)
[2022-12-10] MEDS: KCL 40MEQ IN D5/0.45NS 1000ML 1,000 ML IV SCH (04:30)
[2022-12-10 05:15] LABS: ALBUMIN 1.8 G/DL (3.2-5.2); ALKALINE PHOSPHATASE 123 U/L (46-116); ALT/SGPT 76 U/L (7.0-40); AST/SGOT 68 U/L (<34); BILIRUBIN,TOTAL 0.5 MG/DL (0.3-1.2); BLOOD UREA NITROGEN 8 MG/DL (9-23); CALCIUM LEVEL 8.7 MG/DL (8.5-10.1); CARBON DIOXIDE LEVEL 20 MMOL/L (20-31); CHLORIDE LEVEL 108 MMOL/L (98-107); CREATININE FOR GFR 0.54 MG/DL (0.55-1.30); GLOMERULAR FILTRATION RATE > 60.0 (>51); GLUCOSE, FASTING 108 MG/DL (60-100); MAGNESIUM LEVEL 0.9 MG/DL (1.8-2.4); POTASSIUM SERUM 4.7 MMOL/L (3.5-5.1); SODIUM LEVEL 138 MMOL/L (136-145); TOTAL PROTEIN 5.2 G/DL (5.7-8.2)
[2022-12-10] MEDS: MAG SULF 1GM/100ML (MAG RUN) 1 GM in IV 1 EA IV SCH ×6 (05:46→22:19)
[2022-12-10] MEDS: SODIUM CHLORIDE 0.9% INJ 10 ML SYR IV SCH ×2 (05:47→18:55)
[2022-12-10 08:00] VITALS: BP 118/68
[2022-12-10] MEDS: FOLIC ACID 1MG TAB PO SCH (08:07)
[2022-12-10] MEDS: MAGNESIUM OXIDE 400MG TAB (MAG-OX) PO SCH ×3 (08:07→20:57)
[2022-12-10] MEDS: THIAMINE 100 MG TAB PO SCH (08:07)
[2022-12-10] MEDS: OXAZEPAM 10MG CAP PO SCH (08:08)
[2022-12-10 12:00] VITALS: BP 110/68
[2022-12-10 16:00] VITALS: BP 104/62
[2022-12-10] MEDS: SODIUM CHLORIDE 0.9% INJ 10 ML SYR IV PRN (18:56)
[2022-12-10 20:00] VITALS: BP 99/63
[2022-12-10] MEDS: OMEPRAZOLE 20MG CAP PO SCH (20:57)
[2022-12-10] MEDS ORDERED: IBUPROFEN 400MG TAB PO ONE (22:00)
[2022-12-11] VITALS (8 sets, daily range): BP systolic 89–125; BP diastolic 61–82
[2022-12-11 04:41] LABS: BASO % 0.5 % (0.0-1.0); EOS # 0.1 10^3/uL (0.0-0.5); HEMATOCRIT 30.1 % (36.0-47.0); HEMOGLOBIN 10.1 g/dl (12.0-15.5); LYMPH # 0.8 10^3/uL (1.5-5.0); LYMPH % 9.5 % (24.0-44.0); MEAN CORPUSCULAR HEMOGLOBIN 35.8 pg (27.0-33.0); MEAN CORPUSCULAR HGB CONC 33.6 g/dl (32.0-36.5); MEAN CORPUSCULAR VOLUME 106.7 fl (80.0-96.0); MONO # 0.7 10^3/uL (0.0-0.8); MONO % 8.4 % (2.0-8.0); NEUTROPHILS # 6.5 10^3/uL (1.5-8.5); NEUTROPHILS % 78.9 % (36.0-66.0); PLATELET COUNT, AUTOMATED 342 10^3/uL (150-450); RED BLOOD COUNT 2.82 10^6/uL (4.00-5.40); WHITE BLOOD COUNT 8.2 10^3/uL (4.0-10.0)
[2022-12-11 05:11] LABS: ALBUMIN 1.9 G/DL (3.2-5.2); ALKALINE PHOSPHATASE 121 U/L (46-116); ALT/SGPT 69 U/L (7.0-40); AST/SGOT 63 U/L (<34); BILIRUBIN,TOTAL 0.6 MG/DL (0.3-1.2); BLOOD UREA NITROGEN 9 MG/DL (9-23); CALCIUM LEVEL 8.4 MG/DL (8.5-10.1); CARBON DIOXIDE LEVEL 22 MMOL/L (20-31); CHLORIDE LEVEL 104 MMOL/L (98-107); CREATININE FOR GFR 0.55 MG/DL (0.55-1.30); GLOMERULAR FILTRATION RATE > 60.0 (>51); GLUCOSE, FASTING 87 MG/DL (60-100); MAGNESIUM LEVEL 1.7 MG/DL (1.8-2.4); POTASSIUM SERUM 4.4 MMOL/L (3.5-5.1); SODIUM LEVEL 137 MMOL/L (136-145); TOTAL PROTEIN 5.4 G/DL (5.7-8.2)
[2022-12-11] MEDS: SODIUM CHLORIDE 0.9% INJ 10 ML SYR IV SCH ×2 (06:17→17:51)
[2022-12-11] MEDS ORDERED: MAG SULF 1GM/100ML (MAG RUN) 1 GM in IV 1 EA IV ONE (08:05)
[2022-12-11] MEDS ORDERED: NS 1,000 ML IV ONE (08:15)
[2022-12-11] MEDS: FOLIC ACID 1MG TAB PO SCH (09:04)
[2022-12-11] MEDS: MAGNESIUM OXIDE 400MG TAB (MAG-OX) PO SCH ×2 (09:04→19:54)
[2022-12-11] MEDS: OXAZEPAM 10MG CAP PO SCH ×2 (09:04→19:55)
[2022-12-11] MEDS: THIAMINE 100 MG TAB PO SCH (09:05)
[2022-12-11] MEDS: NS 1,000 ML IV SCH ×2 (11:26→21:40)
[2022-12-11] MEDS: OMEPRAZOLE 20MG CAP PO SCH (19:54)
[2022-12-12 02:00] VITALS: BP 127/82
[2022-12-12 05:35] VITALS: BP 124/80
[2022-12-12] MEDS: SODIUM CHLORIDE 0.9% INJ 10 ML SYR IV SCH ×2 (05:52→17:05)
[2022-12-12 06:15] LABS: BASO # 0.1 10^3/uL (0.0-0.2); BASO % 0.9 % (0.0-1.0); EOS % 0.6 % (0.0-3.0); HEMOGLOBIN 10.3 g/dl (12.0-15.5); LYMPH # 0.6 10^3/uL (1.5-5.0); LYMPH % 9.6 % (24.0-44.0); MEAN CORPUSCULAR HEMOGLOBIN 36.4 pg (27.0-33.0); MEAN CORPUSCULAR HGB CONC 33.2 g/dl (32.0-36.5); MEAN CORPUSCULAR VOLUME 109.5 fl (80.0-96.0); MONO # 0.6 10^3/uL (0.0-0.8); MONO % 9.4 % (2.0-8.0); NEUTROPHILS % 78.6 % (36.0-66.0); PLATELET COUNT, AUTOMATED 369 10^3/uL (150-450); RED BLOOD COUNT 2.83 10^6/uL (4.00-5.40); WHITE BLOOD COUNT 6.4 10^3/uL (4.0-10.0)
[2022-12-12 07:04] LABS: ALBUMIN 2.2 G/DL (3.2-5.2); ALKALINE PHOSPHATASE 118 U/L (46-116); ALT/SGPT 58 U/L (7.0-40); AST/SGOT 42 U/L (<34); BILIRUBIN,TOTAL 0.7 MG/DL (0.3-1.2); BLOOD UREA NITROGEN 6 MG/DL (9-23); CALCIUM LEVEL 8.8 MG/DL (8.5-10.1); CARBON DIOXIDE LEVEL 23 MMOL/L (20-31); CHLORIDE LEVEL 108 MMOL/L (98-107); CREATININE FOR GFR 0.62 MG/DL (0.55-1.30); GLOMERULAR FILTRATION RATE > 60.0 (>51); GLUCOSE, FASTING 86 MG/DL (60-100); POTASSIUM SERUM 3.8 MMOL/L (3.5-5.1); SODIUM LEVEL 142 MMOL/L (136-145); TOTAL PROTEIN 5.6 G/DL (5.7-8.2)
[2022-12-12] MEDS: THIAMINE 100 MG TAB PO SCH (08:18)
[2022-12-12] MEDS: FOLIC ACID 1MG TAB PO SCH (08:19)
[2022-12-12] MEDS: MAGNESIUM OXIDE 400MG TAB (MAG-OX) PO SCH ×2 (08:19→20:05)
[2022-12-12] MEDS: OXAZEPAM 10MG CAP PO SCH ×2 (08:19→20:05)
[2022-12-12] MEDS: NS 1,000 ML IV SCH (08:19)
[2022-12-12] MEDS: MAG SULF 1GM/100ML (MAG RUN) 1 GM in IV 1 EA IV SCH ×3 (09:18→11:56)
[2022-12-12 10:00] VITALS: BP 129/73
[2022-12-12 14:00] VITALS: BP 127/74
[2022-12-12] MEDS: SODIUM CHLORIDE 0.9% INJ 10 ML SYR IV PRN (17:06)
[2022-12-12 18:00] VITALS: BP 124/74
[2022-12-12] MEDS: OMEPRAZOLE 20MG CAP PO SCH (20:05)
[2022-12-12 22:00] VITALS: BP 123/74
[2022-12-13 02:00] VITALS: BP 125/74
[2022-12-13] MEDS: SODIUM CHLORIDE 0.9% INJ 10 ML SYR IV SCH ×2 (05:07→17:00)
[2022-12-13 06:00] VITALS: BP 121/75
[2022-12-13 06:24] LABS: BASO # 0.1 10^3/uL (0.0-0.2); BASO % 1.3 % (0.0-1.0); EOS # 0.1 10^3/uL (0.0-0.5); EOS % 1.1 % (0.0-3.0); HEMATOCRIT 31.7 % (36.0-47.0); HEMOGLOBIN 10.3 g/dl (12.0-15.5); LYMPH # 0.6 10^3/uL (1.5-5.0); LYMPH % 10.3 % (24.0-44.0); MEAN CORPUSCULAR HEMOGLOBIN 35.8 pg (27.0-33.0); MEAN CORPUSCULAR HGB CONC 32.5 g/dl (32.0-36.5); MEAN CORPUSCULAR VOLUME 110.1 fl (80.0-96.0); MONO # 0.5 10^3/uL (0.0-0.8); MONO % 9.6 % (2.0-8.0); NEUTROPHILS # 4.3 10^3/uL (1.5-8.5); PLATELET COUNT, AUTOMATED 383 10^3/uL (150-450); RED BLOOD COUNT 2.88 10^6/uL (4.00-5.40); WHITE BLOOD COUNT 5.5 10^3/uL (4.0-10.0)
[2022-12-13 06:56] LABS: ALBUMIN 2.3 G/DL (3.2-5.2); ALKALINE PHOSPHATASE 112 U/L (46-116); ALT/SGPT 49 U/L (7.0-40); AST/SGOT 35 U/L (<34); BILIRUBIN,TOTAL 0.5 MG/DL (0.3-1.2); BLOOD UREA NITROGEN 6 MG/DL (9-23); CALCIUM LEVEL 8.8 MG/DL (8.5-10.1); CARBON DIOXIDE LEVEL 24 MMOL/L (20-31); CHLORIDE LEVEL 108 MMOL/L (98-107); CREATININE FOR GFR 0.64 MG/DL (0.55-1.30); GLOMERULAR FILTRATION RATE > 60.0 (>51); GLUCOSE, FASTING 115 MG/DL (60-100); MAGNESIUM LEVEL 1.1 MG/DL (1.8-2.4); POTASSIUM SERUM 3.5 MMOL/L (3.5-5.1); SODIUM LEVEL 136 MMOL/L (136-145); TOTAL PROTEIN 5.7 G/DL (5.7-8.2)
[2022-12-13] MEDS: THIAMINE 100 MG TAB PO SCH (09:19)
[2022-12-13] MEDS: FOLIC ACID 1MG TAB PO SCH (09:19)
[2022-12-13] MEDS: OXAZEPAM 10MG CAP PO SCH ×2 (09:20→20:14)
[2022-12-13] MEDS: MAGNESIUM OXIDE 400MG TAB (MAG-OX) PO SCH ×2 (09:20→20:14)
[2022-12-13 10:00] VITALS: BP 119/75
[2022-12-13] MEDS: MAG SULF 1GM/100ML (MAG RUN) 1 GM in IV 1 EA IV SCH ×3 (12:28→14:15)
[2022-12-13 14:00] VITALS: BP 109/77
[2022-12-13 18:00] VITALS: BP 142/78
[2022-12-13 20:00] VITALS: BP 138/78
[2022-12-13] MEDS: OMEPRAZOLE 20MG CAP PO SCH (20:14)
[2022-12-14] VITALS: BP 129/75
[2022-12-14 04:00] VITALS: BP 104/73
[2022-12-14] MEDS: SODIUM CHLORIDE 0.9% INJ 10 ML SYR IV SCH ×2 (05:38→17:14)
[2022-12-14 06:15] LABS: BASO # 0.1 10^3/uL (0.0-0.2); BASO % 1.5 % (0.0-1.0); EOS # 0.1 10^3/uL (0.0-0.5); EOS % 1.1 % (0.0-3.0); HEMATOCRIT 28.6 % (36.0-47.0); HEMOGLOBIN 9.3 g/dl (12.0-15.5); LYMPH # 0.8 10^3/uL (1.5-5.0); LYMPH % 16.4 % (24.0-44.0); MEAN CORPUSCULAR HEMOGLOBIN 35.8 pg (27.0-33.0); MEAN CORPUSCULAR HGB CONC 32.5 g/dl (32.0-36.5); MONO # 0.5 10^3/uL (0.0-0.8); MONO % 10.1 % (2.0-8.0); NEUTROPHILS # 3.2 10^3/uL (1.5-8.5); PLATELET COUNT, AUTOMATED 379 10^3/uL (150-450); WHITE BLOOD COUNT 4.6 10^3/uL (4.0-10.0)
[2022-12-14 06:35] LABS: ALBUMIN 2.1 G/DL (3.2-5.2); ALKALINE PHOSPHATASE 102 U/L (46-116); ALT/SGPT 36 U/L (7.0-40); AST/SGOT 29 U/L (<34); BILIRUBIN,TOTAL 0.4 MG/DL (0.3-1.2); BLOOD UREA NITROGEN 6 MG/DL (9-23); CALCIUM LEVEL 8.3 MG/DL (8.5-10.1); CARBON DIOXIDE LEVEL 26 MMOL/L (20-31); CHLORIDE LEVEL 107 MMOL/L (98-107); CREATININE FOR GFR 0.67 MG/DL (0.55-1.30); GLOMERULAR FILTRATION RATE > 60.0 (>51); GLUCOSE, FASTING 83 MG/DL (60-100); MAGNESIUM LEVEL 1.3 MG/DL (1.8-2.4); POTASSIUM SERUM 3.7 MMOL/L (3.5-5.1); SODIUM LEVEL 142 MMOL/L (136-145); TOTAL PROTEIN 5.4 G/DL (5.7-8.2)
[2022-12-14] MEDS: MAGNESIUM OXIDE 400MG TAB (MAG-OX) PO SCH ×3 (08:57→20:27)
[2022-12-14] MEDS: THIAMINE 100 MG TAB PO SCH (08:57)
[2022-12-14] MEDS: MAG SULF 1GM/100ML (MAG RUN) 1 GM in IV 1 EA IV SCH ×2 (08:57→10:01)
[2022-12-14] MEDS: FOLIC ACID 1MG TAB PO SCH (08:57)
[2022-12-14 14:00] VITALS: BP 110/72
[2022-12-14] MEDS ORDERED: FUROSEMIDE 40 MG TAB PO ONE (14:05)
[2022-12-14] MEDS: OXAZEPAM 10MG CAP PO SCH (20:28)
[2022-12-14] MEDS: OMEPRAZOLE 20MG CAP PO SCH (20:28)
[2022-12-15] MEDS: SODIUM CHLORIDE 0.9% INJ 10 ML SYR IV SCH ×2 (05:59→17:53)
[2022-12-15 06:00] VITALS: BP 105/66
[2022-12-15 06:23] LABS: BASO # 0.1 10^3/uL (0.0-0.2); BASO % 1.7 % (0.0-1.0); EOS # 0.1 10^3/uL (0.0-0.5); EOS % 1.4 % (0.0-3.0); HEMATOCRIT 31.2 % (36.0-47.0); HEMOGLOBIN 10.3 g/dl (12.0-15.5); LYMPH # 0.9 10^3/uL (1.5-5.0); MEAN CORPUSCULAR HEMOGLOBIN 35.8 pg (27.0-33.0); MEAN CORPUSCULAR VOLUME 108.3 fl (80.0-96.0); MONO # 0.6 10^3/uL (0.0-0.8); MONO % 9.9 % (2.0-8.0); NEUTROPHILS # 4.1 10^3/uL (1.5-8.5); NEUTROPHILS % 70.7 % (36.0-66.0); PLATELET COUNT, AUTOMATED 428 10^3/uL (150-450); RED BLOOD COUNT 2.88 10^6/uL (4.00-5.40); WHITE BLOOD COUNT 5.8 10^3/uL (4.0-10.0)
[2022-12-15] MEDS: THIAMINE 100 MG TAB PO SCH (09:36)
[2022-12-15] MEDS: MAGNESIUM OXIDE 400MG TAB (MAG-OX) PO SCH ×3 (09:36→20:10)
[2022-12-15] MEDS: FOLIC ACID 1MG TAB PO SCH (09:36)
[2022-12-15 17:00] VITALS: BP_SYST 105; BP_DIAS 68; BP_DIAS 88
[2022-12-15] MEDS ORDERED: FUROSEMIDE 40MG/4ML VIAL IV ONE (17:05)
[2022-12-15] MEDS ORDERED: FUROSEMIDE 20MG/2ML VIAL IV ONE (17:20)
[2022-12-15] MEDS: OXAZEPAM 10MG CAP PO SCH (20:10)
[2022-12-16] MEDS: SODIUM CHLORIDE 0.9% INJ 10 ML SYR IV SCH ×2 (05:20→17:08)
[2022-12-16 06:00] VITALS: BP 131/76
[2022-12-16] MEDS: THIAMINE 100 MG TAB PO SCH (08:43)
[2022-12-16] MEDS: MAGNESIUM OXIDE 400MG TAB (MAG-OX) PO SCH ×2 (08:43→15:57)
[2022-12-16] MEDS: FOLIC ACID 1MG TAB PO SCH (08:43)
[2022-12-16] MEDS ORDERED: LASI20TA3 PO (10:37)
[2022-12-16] MEDS ORDERED: FOLI1TAB11 PO (10:37)
[2022-12-16] MEDS ORDERED: THIA100TA PO (10:37)
[2022-12-16] MEDS ORDERED: MAGN500T12 PO (10:37)
== END 2022-12-16 17:50 | disposition home or self-care (01) | DRG 720 ==
LOC: M ED 22:03 → M ED INP 12-03 02:23 → M ICU 12-03 05:06 → M MSPAV 12-11 11:28
PROVIDERS: ADMIT Internal Medicine; ATTEND Internal Medicine Nephrology
PROC: 02HV33Z Insertion of Infusion Device into Superior Vena Cava, Percutaneous Approach (ICD-10-PCS; principal; 2022-12-07 16:00)
DX: A41.9 Sepsis, unspecified organism (principal); G93.41 Metabolic encephalopathy; J69.0 Pneumonitis due to inhalation of food and vomit; J96.01 Acute respiratory failure with hypoxia; R65.21 Severe sepsis with septic shock; E43 Unspecified severe protein-calorie malnutrition; K56.7 Ileus, unspecified; E87.20 Acidosis, unspecified; D69.6 Thrombocytopenia, unspecified; E83.42 Hypomagnesemia; E87.1 Hypo-osmolality and hyponatremia; I24.8 Other forms of acute ischemic heart disease; J43.9 Emphysema, unspecified; R13.10 Dysphagia, unspecified; D64.9 Anemia, unspecified; E87.6 Hypokalemia; F10.239 Alcohol dependence with withdrawal, unspecified; F17.210 Nicotine dependence, cigarettes, uncomplicated; I10 Essential (primary) hypertension; K76.0 Fatty (change of) liver, not elsewhere classified; R29.6 Repeated falls; R74.01 Elevation of levels of liver transaminase levels; Z68.1 Body mass index [BMI] 19.9 or less, adult; Z92.3 Personal history of irradiation; Z85.89 Personal history of malignant neoplasm of other organs and systems

== ENCOUNTER 2023-12-15 18:06 | Inpatient (IN) | payer MEDICAID, OTHER ==
[~2023-12-15] VITALS: Ht 154.9 cm; Wt 48.7 kg
[~2023-12-15 18:06] MED LIST changes: +LASI20TA3 PO; +MAGN500T12 PO; +MULTIVITAMIN PO; +THIA100TA PO
[2023-12-15] MEDS ORDERED: LORazepam 2 MG TAB PO PRN (18:30)
[2023-12-15] MEDS: NS 1,000 ML IV ONE (18:30)
[2023-12-15] MEDS: MIDAZOLAM INJ 2MG/2ML VIAL IV ONE (18:48)
[2023-12-15] MEDS: LORazepam 2 MG/ML 1ML VIAL IV STA (18:48)
[2023-12-15] MEDS: MIDAZOLAM INJ 2MG/2ML VIAL IV PRN (18:56)
[2023-12-15 19:00] LABS: HEMATOCRIT 41.2 % (36.0-47.0); MEAN CORPUSCULAR HEMOGLOBIN 34.1 pg (27.0-33.0); MEAN CORPUSCULAR VOLUME 100.2 fl (80.0-96.0); PLATELET COUNT, AUTOMATED 114 10^3/uL (150-450); RED BLOOD COUNT 4.11 10^6/uL (4.00-5.40); WHITE BLOOD COUNT 15.4 10^3/uL (4.0-10.0)
[2023-12-15 19:04] LABS: INR 1.08; PROTHROMBIN TIME 13.7 SECONDS (12.5-14.5)
[2023-12-15 19:13] LABS: ETHYL ALCOHOL (ETHANOL) < 0.003 % (0.000-0.010)
[2023-12-15 19:14] LABS: ALBUMIN 3.4 G/DL (3.2-5.2); ALKALINE PHOSPHATASE 111 U/L (46-116); ALT/SGPT 27 U/L (7.0-40); AST/SGOT 46 U/L (<34); BILIRUBIN,DIRECT 0.5 MG/DL (<0.4); BILIRUBIN,TOTAL 1.5 MG/DL (0.3-1.2); BLOOD UREA NITROGEN 18 MG/DL (9-23); CALCIUM LEVEL 9.9 MG/DL (8.3-10.6); CARBON DIOXIDE LEVEL 21 MMOL/L (20-31); CHLORIDE LEVEL 101 MMOL/L (98-107); GLOMERULAR FILTRATION RATE > 60.0 (>45); GLUCOSE, FASTING 134 MG/DL (74-106); POTASSIUM SERUM 3.6 MMOL/L (3.5-5.1); SODIUM LEVEL 137 MMOL/L (136-145); TOTAL PROTEIN 7.5 G/DL (5.7-8.2)
[2023-12-15] MEDS: NS 1,490 ML in IV 1 EA IV ONE (19:20)
[2023-12-15] MEDS: cefTRIAXone SOD 2 GM in D5W MINI-BAG PLUS 50 ML IV ONE (19:20)
[2023-12-15 19:30] LABS: BASOPHILS 1 % (0-1); LYMPHOCYTES 2 % (16-44); MONOCYTES 8 % (0-5); NEUTROPHILS 80 % (28-66)
[2023-12-15 19:31] LABS: ANISOCYTOSIS 1+; PLATELET ESTIMATE DECREASED (NORMAL)
[2023-12-15] MEDS: ACETAMINOPHEN *IV* 500 MG in IV 1 EA IV ONE (19:48)
[2023-12-15 19:51] LABS: CK-MB VALUE MASS 14.1 NG/ML (<3.6)
[2023-12-15 19:52] LABS: CPK CREATINE PHOSPHOKINASE 405 U/L (34-145); MB/CK RELATIVE INDEX 3.48 (< OR =4)
[2023-12-15 19:55] VITALS: O2SAT 97
[2023-12-15] MEDS ORDERED: cefTRIAXone SOD 1 GM in D5W MINI-BAG PLUS 50 ML IV ONE (20:05)
[2023-12-15] MEDS: IPRATROPIUM 0.5MG/ALBUTEROL 2.5MG INH SOL UD 3ML (DUONEB) NEB ONE ×2 (20:06)
[2023-12-15] MEDS ORDERED: THIAMINE 100 MG TAB PO SCH (21:00)
[2023-12-15] MEDS: AZITHROMYCIN INJ 500 MG, VIAL MATE ADAPTER 1 EACH in NS 250 ML IV ONE (22:34)
[2023-12-15] MEDS ORDERED: HOME MED LIST COMPLETE! XX SCH (22:50)
[2023-12-15] MEDS ORDERED: LEVALBUTEROL 1.25MG 0.5ML CONCENTRATE NEB NEB PRN (23:25)
[2023-12-15] MEDS: LORazepam 2 MG TAB PO PRN (23:52)
[2023-12-15 23:55] LABS: PROCALCITONIN 0.68 ng/ml
[2023-12-16] VITALS (37 sets, daily range): BP systolic 112–173; BP diastolic 68–92; TEMP 98.3–100.1; O2SAT 88–98
[2023-12-16] MEDS: DEXMEDETOMIDINE IV ONE (01:53)
[2023-12-16] MEDS: dexmedeTOMidine 200 MCG in IV 1 EA IV SCH (02:04)
[2023-12-16] MEDS: IPRATROPIUM 0.5MG/ALBUTEROL 2.5MG INH SOL UD 3ML (DUONEB) NEB SCH (02:05)
[2023-12-16] MEDS: MULTIVITAMIN -ADULT INJECTION 10 ML, THIAMINE INJection 100 MG, FOLIC ACID 1 MG in NS 1... IV ONE (04:42)
[2023-12-16 07:13] LABS: HEMATOCRIT 31.8 % (36.0-47.0); MEAN CORPUSCULAR HEMOGLOBIN 34.9 pg (27.0-33.0); MEAN CORPUSCULAR HGB CONC 34.6 g/dl (32.0-36.5); PLATELET COUNT, AUTOMATED 102 10^3/uL (150-450); RED BLOOD COUNT 3.15 10^6/uL (4.00-5.40); WHITE BLOOD COUNT 10.9 10^3/uL (4.0-10.0)
[2023-12-16 08:02] LABS: ALBUMIN 2.4 G/DL (3.2-5.2); ALKALINE PHOSPHATASE 74 U/L (46-116); ALT/SGPT 22 U/L (7.0-40); AST/SGOT 41 U/L (<34); BILIRUBIN,TOTAL 1.2 MG/DL (0.3-1.2); BLOOD UREA NITROGEN 14 MG/DL (9-23); CALCIUM LEVEL 7.8 MG/DL (8.3-10.6); CARBON DIOXIDE LEVEL 26 MMOL/L (20-31); CHLORIDE LEVEL 108 MMOL/L (98-107); CPK CREATINE PHOSPHOKINASE 366 U/L (34-145); CREATININE FOR GFR 0.48 MG/DL (0.55-1.30); GLOMERULAR FILTRATION RATE > 60.0 (>45); GLUCOSE, FASTING 78 MG/DL (74-106); POTASSIUM SERUM 3.1 MMOL/L (3.5-5.1); SODIUM LEVEL 141 MMOL/L (136-145); TOTAL PROTEIN 5.6 G/DL (5.7-8.2)
[2023-12-16] MEDS: ENOXAPARIN 40MG/0.4ML SYRINGE (J1650 PER 10MG) SC SCH (08:36)
[2023-12-16] MEDS ORDERED: MULTIVITAMINS/MINERALS THERAP 1 TAB PO SCH (09:00)
[2023-12-16] MEDS ORDERED: FOLIC ACID 1MG TAB PO SCH (09:00)
[2023-12-16] MEDS: POTASSIUM CHLORIDE 10MEQ SR TABLET PO ONE (09:15)
[2023-12-16] MEDS: OXAZEPAM 15MG CAP PO ONE (09:16)
[2023-12-16] MEDS ORDERED: POTASSIUM CHLORIDE 10% LIQ 20MEQ/15ML UDC PO ONE ×2 (10:00→15:00)
[2023-12-16] MEDS: KCL 10MEQ/100ML SWI (KRUN) 10 MEQ in IV 1 EA IV SCH (10:11)
[2023-12-16 11:30] LABS: MAGNESIUM LEVEL 1.1 MG/DL (1.8-2.4)
[2023-12-16] MEDS: MAG SULF 1GM/100ML (MAG RUN) 1 GM in IV 1 EA IV SCH (12:07)
[2023-12-16] MEDS ORDERED: POTASSIUM CHLORIDE 10MEQ SR TABLET PO ONE (14:00)
[2023-12-16] MEDS: OXAZEPAM 15MG CAP PO SCH (17:59)
[2023-12-16] MEDS: cefTRIAXone SOD 1 GM in D5W MINI-BAG PLUS 50 ML IV SCH (17:59)
[2023-12-16] MEDS: AZITHROMYCIN INJ 500 MG, VIAL MATE ADAPTER 1 EACH in NS 250 ML IV SCH (21:02)
[2023-12-16] MEDS: THIAMINE 100 MG TAB PO SCH (21:03)
[2023-12-16] MEDS: ACETAMINOPHEN TAB 650MG DOSE (2X325MG) PO PRN (21:03)
[2023-12-17] VITALS (21 sets, daily range): BP systolic 142–179; BP diastolic 73–98; TEMP 97.4–99.6; O2SAT 90–96
[2023-12-17 05:42] LABS: BASO % 0.4 % (0.0-1.0); EOS % 0.3 % (0.0-3.0); HEMATOCRIT 33.7 % (36.0-47.0); HEMOGLOBIN 11.4 g/dl (12.0-15.5); LYMPH # 0.9 10^3/uL (1.5-5.0); LYMPH % 8.7 % (24.0-44.0); MEAN CORPUSCULAR HEMOGLOBIN 34.5 pg (27.0-33.0); MEAN CORPUSCULAR HGB CONC 33.8 g/dl (32.0-36.5); MEAN CORPUSCULAR VOLUME 102.1 fl (80.0-96.0); MONO # 1.2 10^3/uL (0.0-0.8); MONO % 11.7 % (2.0-8.0); NEUTROPHILS # 7.7 10^3/uL (1.5-8.5); NEUTROPHILS % 78.3 % (36.0-66.0); WHITE BLOOD COUNT 9.9 10^3/uL (4.0-10.0)
[2023-12-17 05:53] LABS: ALBUMIN 2.3 G/DL (3.2-5.2); ALKALINE PHOSPHATASE 84 U/L (46-116); ALT/SGPT 21 U/L (7.0-40); AST/SGOT 38 U/L (<34); BLOOD UREA NITROGEN 11 MG/DL (9-23); CALCIUM LEVEL 8.1 MG/DL (8.3-10.6); CARBON DIOXIDE LEVEL 25 MMOL/L (20-31); CHLORIDE LEVEL 104 MMOL/L (98-107); CREATININE FOR GFR 0.47 MG/DL (0.55-1.30); GLOMERULAR FILTRATION RATE > 60.0 (>45); GLUCOSE, FASTING 73 MG/DL (74-106); POTASSIUM SERUM 3.3 MMOL/L (3.5-5.1); SODIUM LEVEL 139 MMOL/L (136-145); TOTAL PROTEIN 5.8 G/DL (5.7-8.2)
[2023-12-17 06:22] LABS: MAGNESIUM LEVEL 1.2 MG/DL (1.8-2.4)
[2023-12-17] MEDS ORDERED: KCL 10MEQ/100ML SWI (KRUN) 10 MEQ in IV 1 EA IV SCH (06:30)
[2023-12-17] MEDS: POTASSIUM CHLORIDE 10MEQ SR TABLET PO ONE (06:34)
[2023-12-17] MEDS: MAG SULF 1GM/100ML (MAG RUN) 1 GM in IV 1 EA IV SCH ×2 (06:43→16:59)
[2023-12-17] MEDS: KCL 10MEQ/100ML SWI (KRUN) 10 MEQ in IV 1 EA IV SCH ×2 (09:22→11:09)
[2023-12-17] MEDS: FOLIC ACID 1MG TAB PO SCH (09:44)
[2023-12-17] MEDS: MULTIVITAMINS/MINERALS THERAP 1 TAB PO SCH (09:44)
[2023-12-17 16:20] LABS: BASO # 0.1 10^3/uL (0.0-0.2); BASO % 0.5 % (0.0-1.0); EOS % 0.2 % (0.0-3.0); HEMATOCRIT 34.1 % (36.0-47.0); HEMOGLOBIN 11.7 g/dl (12.0-15.5); LYMPH # 0.7 10^3/uL (1.5-5.0); LYMPH % 7.2 % (24.0-44.0); MEAN CORPUSCULAR HEMOGLOBIN 34.8 pg (27.0-33.0); MEAN CORPUSCULAR HGB CONC 34.3 g/dl (32.0-36.5); MEAN CORPUSCULAR VOLUME 101.5 fl (80.0-96.0); MONO # 1.1 10^3/uL (0.0-0.8); MONO % 11.5 % (2.0-8.0); NEUTROPHILS # 7.7 10^3/uL (1.5-8.5); NEUTROPHILS % 79.8 % (36.0-66.0); RED BLOOD COUNT 3.36 10^6/uL (4.00-5.40); WHITE BLOOD COUNT 9.7 10^3/uL (4.0-10.0)
[2023-12-17 16:36] LABS: ALBUMIN 2.4 G/DL (3.2-5.2); ALKALINE PHOSPHATASE 90 U/L (46-116); ALT/SGPT 24 U/L (7.0-40); AST/SGOT 38 U/L (<34); BLOOD UREA NITROGEN 10 MG/DL (9-23); CALCIUM LEVEL 8.3 MG/DL (8.3-10.6); CARBON DIOXIDE LEVEL 26 MMOL/L (20-31); CHLORIDE LEVEL 104 MMOL/L (98-107); CREATININE FOR GFR 0.46 MG/DL (0.55-1.30); GLOMERULAR FILTRATION RATE > 60.0 (>45); GLUCOSE, FASTING 128 MG/DL (74-106); MAGNESIUM LEVEL 1.3 MG/DL (1.8-2.4); POTASSIUM SERUM 3.1 MMOL/L (3.5-5.1); SODIUM LEVEL 137 MMOL/L (136-145)
[2023-12-17 16:58] LABS: PLTBLUE- EDTA FREE CALC 168 K/mm3 (172-450)
[2023-12-17 17:36] LABS: PLTBLUE- EDTA FREE MACHINE 153 10^3/uL (172-450)
[2023-12-17] MEDS: POTASSIUM CHLORIDE 10MEQ SR TABLET PO SCH (20:42)
[2023-12-18] VITALS (11 sets, daily range): BP systolic 118–178; BP diastolic 71–110; TEMP 97.1–98.7; O2SAT 90–97
[2023-12-18] MEDS: OLANZapine INTRAMUSCULAR 10MG VIAL IM ONE ×2 (01:26→22:43)
[2023-12-18] MEDS: LORazepam 2 MG/ML 1ML VIAL IV PRN (03:40)
[2023-12-18 07:31] LABS: BASO % 0.4 % (0.0-1.0); EOS % 0.5 % (0.0-3.0); HEMATOCRIT 36.5 % (36.0-47.0); HEMOGLOBIN 12.3 g/dl (12.0-15.5); LYMPH # 0.8 10^3/uL (1.5-5.0); LYMPH % 10.3 % (24.0-44.0); MEAN CORPUSCULAR HEMOGLOBIN 34.6 pg (27.0-33.0); MEAN CORPUSCULAR HGB CONC 33.7 g/dl (32.0-36.5); MEAN CORPUSCULAR VOLUME 102.5 fl (80.0-96.0); MONO # 1.1 10^3/uL (0.0-0.8); MONO % 15.7 % (2.0-8.0); NEUTROPHILS # 5.2 10^3/uL (1.5-8.5); NEUTROPHILS % 71.9 % (36.0-66.0); PLATELET COUNT, AUTOMATED 173 10^3/uL (150-450); RED BLOOD COUNT 3.56 10^6/uL (4.00-5.40); WHITE BLOOD COUNT 7.3 10^3/uL (4.0-10.0)
[2023-12-18 07:51] LABS: ALBUMIN 2.6 G/DL (3.2-5.2); ALKALINE PHOSPHATASE 99 U/L (46-116); ALT/SGPT 30 U/L (7.0-40); AST/SGOT 39 U/L (<34); BLOOD UREA NITROGEN 9 MG/DL (9-23); CARBON DIOXIDE LEVEL 28 MMOL/L (20-31); CHLORIDE LEVEL 103 MMOL/L (98-107); CREATININE FOR GFR 0.52 MG/DL (0.55-1.30); GLOMERULAR FILTRATION RATE > 60.0 (>45); GLUCOSE, FASTING 91 MG/DL (74-106); MAGNESIUM LEVEL 1.3 MG/DL (1.8-2.4); PHOSPHORUS LEVEL 2.9 MG/DL (2.4-5.1); POTASSIUM SERUM 3.4 MMOL/L (3.5-5.1); SODIUM LEVEL 140 MMOL/L (136-145); TOTAL PROTEIN 6.4 G/DL (5.7-8.2)
[2023-12-18] MEDS ORDERED: IPRATROPIUM 0.5MG/ALBUTEROL 2.5MG INH SOL UD 3ML (DUONEB) NEB PRN (09:30)
[2023-12-18] MEDS: METOPROLOL TART 25 MG TABLET PO SCH (09:50)
[2023-12-18] MEDS: METOPROLOL 5 MG/5 ML VIAL IV PRN (12:20)
[2023-12-18] MEDS: MAG SULF 1GM/100ML (MAG RUN) 1 GM in IV 1 EA IV SCH (13:10)
[2023-12-18] MEDS: METOPROLOL TART 50 MG TAB PO SCH (17:39)
[2023-12-19 04:18] VITALS: BP 154/87; TEMP 97.4; O2SAT 95
[2023-12-19 07:12] VITALS: BP 149/77; TEMP 97.7; O2SAT 92
[2023-12-19 08:49] LABS: HEMATOCRIT 36.9 % (36.0-47.0); HEMOGLOBIN 12.3 g/dl (12.0-15.5); MEAN CORPUSCULAR HEMOGLOBIN 34.5 pg (27.0-33.0); MEAN CORPUSCULAR HGB CONC 33.3 g/dl (32.0-36.5); MEAN CORPUSCULAR VOLUME 103.4 fl (80.0-96.0); PLATELET COUNT, AUTOMATED 218 10^3/uL (150-450); RED BLOOD COUNT 3.57 10^6/uL (4.00-5.40); WHITE BLOOD COUNT 7.3 10^3/uL (4.0-10.0)
[2023-12-19 09:20] LABS: BLOOD UREA NITROGEN 14 MG/DL (9-23); CALCIUM LEVEL 9.1 MG/DL (8.3-10.6); CARBON DIOXIDE LEVEL 23 MMOL/L (20-31); CHLORIDE LEVEL 108 MMOL/L (98-107); CREATININE FOR GFR 0.52 MG/DL (0.55-1.30); GLOMERULAR FILTRATION RATE > 60.0 (>45); GLUCOSE, FASTING 83 MG/DL (74-106); MAGNESIUM LEVEL 1.1 MG/DL (1.8-2.4); POTASSIUM SERUM 3.9 MMOL/L (3.5-5.1); SODIUM LEVEL 143 MMOL/L (136-145)
[2023-12-19] MEDS: MAG SULF 1GM/100ML (MAG RUN) 1 GM in IV 1 EA IV SCH (09:52)
[2023-12-19 13:03] VITALS: BP 109/67; TEMP 97.2; O2SAT 92
[2023-12-19 16:24] VITALS: BP 120/72; TEMP 97
[2023-12-19 19:39] VITALS: BP 133/76; TEMP 97.4; O2SAT 95
[2023-12-19 23:22] VITALS: BP 146/87; TEMP 97.3; O2SAT 92
[2023-12-20] VITALS (10 sets, daily range): BP systolic 118–140; BP diastolic 56–87; TEMP 97.1–97.7; O2SAT 90–97
[2023-12-20] MEDS: QUEtiapine FUMARATE 50MG TAB PO ONE (02:38)
[2023-12-20 04:51] LABS: HEMATOCRIT 35.1 % (36.0-47.0); HEMOGLOBIN 11.8 g/dl (12.0-15.5); MEAN CORPUSCULAR HEMOGLOBIN 34.6 pg (27.0-33.0); MEAN CORPUSCULAR HGB CONC 33.6 g/dl (32.0-36.5); MEAN CORPUSCULAR VOLUME 102.9 fl (80.0-96.0); PLATELET COUNT, AUTOMATED 273 10^3/uL (150-450); RED BLOOD COUNT 3.41 10^6/uL (4.00-5.40); WHITE BLOOD COUNT 7.9 10^3/uL (4.0-10.0)
[2023-12-20 05:20] LABS: ALBUMIN 2.6 G/DL (3.2-5.2); ALKALINE PHOSPHATASE 90 U/L (46-116); ALT/SGPT 32 U/L (7.0-40); AST/SGOT 34 U/L (<34); BILIRUBIN,TOTAL 0.7 MG/DL (0.3-1.2); BLOOD UREA NITROGEN 18 MG/DL (9-23); CALCIUM LEVEL 9.1 MG/DL (8.3-10.6); CARBON DIOXIDE LEVEL 24 MMOL/L (20-31); CHLORIDE LEVEL 106 MMOL/L (98-107); CREATININE FOR GFR 0.58 MG/DL (0.55-1.30); GLOMERULAR FILTRATION RATE > 60.0 (>45); GLUCOSE, FASTING 108 MG/DL (74-106); MAGNESIUM LEVEL 1.2 MG/DL (1.8-2.4); POTASSIUM SERUM 3.5 MMOL/L (3.5-5.1); SODIUM LEVEL 141 MMOL/L (136-145); TOTAL PROTEIN 6.1 G/DL (5.7-8.2)
[2023-12-20] MEDS: LORazepam 2 MG TAB PO PRN (10:02)
[2023-12-20] MEDS: CEFDINIR 300 MG CAP (OMNICEF) PO SCH (12:40)
[2023-12-20] MEDS: MAG SULF 1GM/100ML (MAG RUN) 1 GM in IV 1 EA IV SCH (15:12)
[2023-12-20 16:12] LABS: BODY FLUID CULTURE Not indicated. (.); LEGIONELLA ANTIGEN URINE Negative (Negative); ORGANISM ID Not indicated. (.); SPECIMEN SOURCE Urine (.); URINE STREP PNEUMONIAE ANTIGEN Negative (Negative)
[2023-12-20] MEDS: AZITHROMYCIN 250MG TABLET PO SCH (20:14)
[2023-12-20] MEDS: QUEtiapine FUMARATE 25 MG TAB PO SCH (20:15)
[2023-12-21] VITALS (7 sets, daily range): BP systolic 104–138; BP diastolic 62–83; TEMP 97.7–98.1; O2SAT 90–95
[2023-12-21 06:41] LABS: HEMATOCRIT 33.7 % (36.0-47.0); HEMOGLOBIN 11.2 g/dl (12.0-15.5); MEAN CORPUSCULAR HEMOGLOBIN 34.5 pg (27.0-33.0); MEAN CORPUSCULAR HGB CONC 33.2 g/dl (32.0-36.5); MEAN CORPUSCULAR VOLUME 103.7 fl (80.0-96.0); PLATELET COUNT, AUTOMATED 305 10^3/uL (150-450); RED BLOOD COUNT 3.25 10^6/uL (4.00-5.40); WHITE BLOOD COUNT 7.6 10^3/uL (4.0-10.0)
[2023-12-21 07:01] LABS: ALBUMIN 2.4 G/DL (3.2-5.2); ALKALINE PHOSPHATASE 86 U/L (46-116); ALT/SGPT 25 U/L (7.0-40); AST/SGOT 22 U/L (<34); BILIRUBIN,TOTAL 0.6 MG/DL (0.3-1.2); BLOOD UREA NITROGEN 16 MG/DL (9-23); CARBON DIOXIDE LEVEL 25 MMOL/L (20-31); CHLORIDE LEVEL 112 MMOL/L (98-107); CREATININE FOR GFR 0.59 MG/DL (0.55-1.30); GLOMERULAR FILTRATION RATE > 60.0 (>45); GLUCOSE, FASTING 83 MG/DL (74-106); MAGNESIUM LEVEL 1.2 MG/DL (1.8-2.4); POTASSIUM SERUM 4.4 MMOL/L (3.5-5.1); SODIUM LEVEL 144 MMOL/L (136-145); TOTAL PROTEIN 5.9 G/DL (5.7-8.2)
[2023-12-21] MEDS: MAG SULF 1GM/100ML (MAG RUN) 1 GM in IV 1 EA IV SCH (09:28)
[2023-12-21] MEDS ORDERED: PILL CUTTER 1 EACH XX ONE (19:57)
[2023-12-21] MEDS: BENZONATATE 100MG CAPSULE PO PRN (20:12)
[2023-12-22 04:20] VITALS: BP_SYST 143; BP_DIAS 83; BP_DIAS 88; TEMP 97.9; O2SAT 94
[2023-12-22 06:20] LABS: HEMATOCRIT 36.8 % (36.0-47.0); HEMOGLOBIN 12.1 g/dl (12.0-15.5); MEAN CORPUSCULAR HEMOGLOBIN 34.7 pg (27.0-33.0); MEAN CORPUSCULAR HGB CONC 32.9 g/dl (32.0-36.5); MEAN CORPUSCULAR VOLUME 105.4 fl (80.0-96.0); PLATELET COUNT, AUTOMATED 379 10^3/uL (150-450); RED BLOOD COUNT 3.49 10^6/uL (4.00-5.40); WHITE BLOOD COUNT 7.9 10^3/uL (4.0-10.0)
[2023-12-22 06:41] LABS: ALKALINE PHOSPHATASE 98 U/L (46-116); ALT/SGPT 28 U/L (7.0-40); AST/SGOT 27 U/L (<34); BILIRUBIN,TOTAL 0.7 MG/DL (0.3-1.2); BLOOD UREA NITROGEN 15 MG/DL (9-23); CALCIUM LEVEL 9.7 MG/DL (8.3-10.6); CARBON DIOXIDE LEVEL 24 MMOL/L (20-31); CHLORIDE LEVEL 109 MMOL/L (98-107); CREATININE FOR GFR 0.72 MG/DL (0.55-1.30); GLOMERULAR FILTRATION RATE > 60.0 (>45); GLUCOSE, FASTING 99 MG/DL (74-106); MAGNESIUM LEVEL 1.2 MG/DL (1.8-2.4); POTASSIUM SERUM 4.5 MMOL/L (3.5-5.1); SODIUM LEVEL 141 MMOL/L (136-145); TOTAL PROTEIN 6.8 G/DL (5.7-8.2)
[2023-12-22 08:45] VITALS: BP 135/80
[2023-12-22] MEDS ORDERED: MAGN200T10 PO (11:14)
[2023-12-22] MEDS ORDERED: Multivitamins PO (11:14)
[2023-12-22] MEDS ORDERED: BENZ-18 PO (11:14)
[2023-12-22] MEDS ORDERED: POTA-136 PO (11:14)
[2023-12-22] MEDS ORDERED: FOLI1TAB11 PO (11:14)
[2023-12-22] MEDS ORDERED: CEFD300CAP PO (11:14)
[2023-12-22] MEDS ORDERED: LOPR1TAB6 PO (11:14)
[2023-12-22 14:17] VITALS: BP 130/73; TEMP 97.5; O2SAT 90
== END 2023-12-22 18:51 | disposition home or self-care (01) | DRG 720 ==
LOC: M ED 18:06 → M ED INP 23:08 → M PCU 12-16 01:10 → M ICU 12-16 01:51 → M PCU 12-17 17:48 → M MSPAV 12-20 14:39
PROVIDERS: ADMIT Internal Medicine; ATTEND Family Medicine
DX: A41.9 Sepsis, unspecified organism (principal); J96.01 Acute respiratory failure with hypoxia; F10.231 Alcohol dependence with withdrawal delirium; J18.9 Pneumonia, unspecified organism; D69.6 Thrombocytopenia, unspecified; E83.42 Hypomagnesemia; J44.0 Chronic obstructive pulmonary disease with (acute) lower respiratory infection; J44.1 Chronic obstructive pulmonary disease with (acute) exacerbation; K80.20 Calculus of gallbladder without cholecystitis without obstruction; K76.0 Fatty (change of) liver, not elsewhere classified; F17.210 Nicotine dependence, cigarettes, uncomplicated; B34.8 Other viral infections of unspecified site; Z11.52 Encounter for screening for COVID-19; E87.6 Hypokalemia; N63.10 Unspecified lump in the right breast, unspecified quadrant; Z85.828 Personal history of other malignant neoplasm of skin; Z92.3 Personal history of irradiation

== ENCOUNTER → 2024-01-01 | Outpatient (REF) | payer OTHER ==
[~2024-01-01] MED LIST changes: +BENZ-18 PO; +CEFD300CAP PO; +LOPR1TAB6 PO; +MAGN200T10 PO; +Multivitamins PO; +POTA-136 PO
[2024-01-01 18:48] LABS: ALBUMIN 3.2 G/DL (3.2-5.2); ALKALINE PHOSPHATASE 82 U/L (46-116); ALT/SGPT 22 U/L (7.0-40); AST/SGOT 28 U/L (<34); BILIRUBIN,TOTAL 0.3 MG/DL (0.3-1.2); BLOOD UREA NITROGEN 13 MG/DL (9-23); CALCIUM LEVEL 9.9 MG/DL (8.3-10.6); CARBON DIOXIDE LEVEL 30 MMOL/L (20-31); CHLORIDE LEVEL 104 MMOL/L (98-107); CREATININE FOR GFR 0.62 MG/DL (0.55-1.30); GLOMERULAR FILTRATION RATE > 60.0 (>45); GLUCOSE, FASTING 92 MG/DL (74-106); MAGNESIUM LEVEL 1.3 MG/DL (1.8-2.4); POTASSIUM SERUM 4.4 MMOL/L (3.5-5.1); SODIUM LEVEL 139 MMOL/L (136-145); TOTAL PROTEIN 6.6 G/DL (5.7-8.2)
[2024-01-01 19:11] LABS: BASO # 0.1 10^3/uL (0.0-0.2); BASO % 0.6 % (0.0-1.0); EOS # 0.1 10^3/uL (0.0-0.5); EOS % 1.7 % (0.0-3.0); HEMATOCRIT 37.2 % (36.0-47.0); HEMOGLOBIN 12.1 g/dl (12.0-15.5); LYMPH # 1.2 10^3/uL (1.5-5.0); LYMPH % 15.2 % (24.0-44.0); MEAN CORPUSCULAR HEMOGLOBIN 34.1 pg (27.0-33.0); MEAN CORPUSCULAR HGB CONC 32.5 g/dl (32.0-36.5); MEAN CORPUSCULAR VOLUME 104.8 fl (80.0-96.0); MONO # 0.6 10^3/uL (0.0-0.8); MONO % 7.3 % (2.0-8.0); NEUTROPHILS # 5.9 10^3/uL (1.5-8.5); NEUTROPHILS % 74.9 % (36.0-66.0); PLATELET COUNT, AUTOMATED 393 10^3/uL (150-450); RED BLOOD COUNT 3.55 10^6/uL (4.00-5.40); WHITE BLOOD COUNT 7.8 10^3/uL (4.0-10.0)
== END ==
LOC: M LAB REF 17:37
PROVIDERS: ATTEND Family Medicine Addiction Medicine
DX: D69.6 Thrombocytopenia, unspecified (principal); E83.42 Hypomagnesemia; E87.6 Hypokalemia

== ENCOUNTER → 2024-02-12 | Outpatient (CLI) | payer OTHER | LOC: M WHC 14:03 | PROVIDERS: ATTEND Family Medicine Addiction Medicine | DX: N63.11 Unspecified lump in the right breast, upper outer quadrant (principal); R92.323 Mammographic fibroglandular density, bilateral breasts; Z80.3 Family history of malignant neoplasm of breast ==

== ENCOUNTER → 2024-02-14 | Outpatient (CLI) | payer OTHER ==
[~2024-02-14] MED LIST changes: +GASTROGRAFIN SOLUTION 30ML As Ordered ONE; +ISOVUE-370 76% 100ML VIAL As Ordered ONE
== END ==
LOC: M RAD 13:18
PROVIDERS: ATTEND Internal Medicine Medical Oncology
DX: C51.9 Malignant neoplasm of vulva, unspecified (principal)
CPT/HCPCS: 74177; Q9963; Q9967

== ENCOUNTER → 2024-02-22 | Outpatient (CLI) | payer OTHER ==
[~2024-02-22] MED LIST changes: -GASTROGRAFIN SOLUTION 30ML As Ordered ONE; -ISOVUE-370 76% 100ML VIAL As Ordered ONE
== END ==
LOC: M RAD 11:32
PROVIDERS: ATTEND Family Medicine Addiction Medicine
DX: R19.00 Intra-abdominal and pelvic swelling, mass and lump, unspecified site (principal); Z85.44 Personal history of malignant neoplasm of other female genital organs

== ENCOUNTER → 2024-05-15 | Outpatient (CLI) | payer OTHER | LOC: M RAD 11:39 | PROVIDERS: ATTEND Internal Medicine Medical Oncology | DX: Z85.44 Personal history of malignant neoplasm of other female genital organs (principal) ==

== ENCOUNTER → 2024-08-26 | Outpatient (CLI) | payer OTHER | LOC: M WHC 11:03 | PROVIDERS: ATTEND Internal Medicine Medical Oncology | DX: Z12.31 Encounter for screening mammogram for malignant neoplasm of breast (principal); N63.13 Unspecified lump in the right breast, lower outer quadrant ==

== ENCOUNTER → 2025-04-04 | Outpatient (REF) | payer OTHER ==
[2025-04-04 18:23] LABS: BASO # 0.0 10^3/uL (0.0-0.2); BASO % 0.5 % (0.0-1.0); EOS # 0.2 10^3/uL (0.0-0.5); EOS % 2.1 % (0.0-3.0); LYMPH # 2.8 10^3/uL (1.5-5.0); LYMPH % 37.0 % (24.0-44.0); MONO # 0.4 10^3/uL (0.0-0.8); MONO % 5.7 % (2.0-8.0); NEUTROPHILS # 4.1 10^3/uL (1.5-8.5); NEUTROPHILS % 54.4 % (36.0-66.0); PLATELET COUNT, AUTOMATED 210 10^3/uL (150-450)
[2025-04-04 18:30] LABS: ALT/SGPT 15 U/L (7.0-40); AST/SGOT 24 U/L (<34); CALCIUM LEVEL 9.9 MG/DL (8.3-10.6); CARBON DIOXIDE LEVEL 27 MMOL/L (20-31); CHLORIDE LEVEL 106 MMOL/L (98-107); CHOLESTEROL LEVEL 289 MG/DL (<200); CHOLESTEROL RISK RATIO 5.98 (<5); CREATININE FOR GFR 0.71 MG/DL (0.55-1.30); GLOMERULAR FILTRATION RATE > 90.0 (>45); LDL CHOLESTEROL 182.9 MG/DL (<100); MAGNESIUM LEVEL 1.6 MG/DL (1.8-2.4); NON-HDL-C 240.7 MG/DL; POTASSIUM SERUM 3.9 MMOL/L (3.5-5.1); SODIUM LEVEL 139 MMOL/L (136-145); TRIGLYCERIDES LEVEL 289 MG/DL (<150)
[2025-04-07 13:57] LABS: RUBEOLA IgG ANTIBODY 71.30 AU/mL (>16.49)
== END ==
LOC: M LAB REF 17:12
PROVIDERS: ATTEND Nurse Practitioner Family
DX: H02.65 Xanthelasma of left lower eyelid (principal); D69.6 Thrombocytopenia, unspecified; Z76.89 Persons encountering health services in other specified circumstances; E83.42 Hypomagnesemia

== ENCOUNTER → 2025-04-21 | Outpatient (CLI) | payer OTHER | LOC: M WHC 12:31 | PROVIDERS: ATTEND Nurse Practitioner Family | DX: Z12.31 Encounter for screening mammogram for malignant neoplasm of breast (principal) ==

== ENCOUNTER → 2025-06-06 | Outpatient (REF) | payer OTHER ==
[2025-06-10 14:15] LABS: HPV APTIMA Not Detected (Not Detected)
== END ==
LOC: M SFHCWAGY 17:39
PROVIDERS: ATTEND Student in an Organized Health Care Education/Training Program
DX: Z12.4 Encounter for screening for malignant neoplasm of cervix (principal); R87.610 Atypical squamous cells of undetermined significance on cytologic smear of cervix (ASC-US)